=== PATIENT | male | born 1945 | race Caucasian/White ===

== ENCOUNTER 2016-05-13 16:24 | Inpatient (IN) | payer MEDICARE, OTHER ==
[~2016-05-13] VITALS: Ht 180.3 cm; Wt 61.1 kg
[~2016-05-13 16:24] MED LIST: CHLO25CA2 PO; CITA20TA4 PO; DIGO0.12 PO; FOLI1TAB4 PO; HYDR-3516 PO; OMEP40CA2 PO; SUCR1TAB PO; TRAZ50TA12 PO; ULTR50TA5 PO; VITA100T2 PO
[2016-05-13 16:26] VITALS: BP 127/60; PULSE 66; RESP 16; TEMP 98.4; O2SAT 100
[2016-05-13] MEDS ORDERED: SODIUM CHLOR 0.9% 1000 ML INJ 1,000 ML IV SCH ×2 (16:29→19:08)
[2016-05-13] MEDS ORDERED: THIAMINE INJ 100 MG in SODIUM CHLORIDE 0.9% INJ 100 ML IV ONE (16:30)
--- NOTE | 2016-05-13 17:25 | PD ---
HPI Chief Complaint: Alcohol/Drug Intoxication Time Seen by Provider: 17:17 Travel History International Travel<30 days: No Contact w/Intl Traveler<30days: No Traveled to known affect area: No History of Present Illness HPI 71-year-old male that presents to the ED for evaluation of alcohol abuse and generalized pain as well as having thoughts of hurting himself. Patient comes here by him once for evaluation of this. Patient apparently was at his house complaining of some discomfort upon intoxicated and was sent here for evaluation. Per ambulance report patient was recently diagnosed with C. difficile and has been compliant with medications. Do not see any records of this in this facility. 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 Patient states that his pain is from the neck down. Per patient he has been drinking a lot. Per patient he drinks a lot every day. Patient has been here multiple times for alcohol-related complaints. He states that he doesn't use any drugs. He denies any fevers chills or sweats. He states compliant with medications. Denies taking any blood thinners. Denies any recent falls or injuries. Patient was seen here in April and was found to have a rib fracture. He does have an allergy to tetanus, sulfa, vancomycin and has a history of MRSA. History is a little limited secondary to his intoxication. Per patient he feels suicidal. When asked if he has a plan he tells me no, but per ambulance he told them that he had a plan to hurt himself. He does have a history of bipolar disorder, depression and anxiety. PFSH Past Medical History Asthma: Yes Autoimmune Disease: No Blood Disorders: No Bipolar Disorder: Yes Anxiety: Yes Depression: Yes Heart Rhythm Problems: No Cancer: No Cardiovascular Problems: No High Cholesterol: No Chemotherapy: No Chest Pain: No Congestive Heart Failure: No COPD: Yes Cerebrovascular Accident: Yes Diabetes: No Diminished Hearing: No Endocrine: No Gastrointestinal Disorders: Yes GERD: Yes Genitourinary: No Hepatitis: No Hiatal Hernia: No Hypertension: Yes Immune Disorder: No Implanted Vascular Access Dvce: Yes Medical other: Yes (GERD) Musculoskeletal: Yes (RHABDO) Neurologic: Yes (WEAKNESS LEFT SIDE) Psychiatric: Yes Reproductive: No Respiratory: Yes (COPD) Integumentary: No Immunizations Current: Yes Pancreatitis: No Radiation Therapy: No Seizures: No Sleep Apnea: No Thyroid Disease: No Past Surgical History Abdominal Surgery: No Appendectomy: No Body Medical Devices: ivc filter inplace, STENT IN LEG Genitourinary Surgery: No Gynecologic Surgery: No Oral Surgery: Yes Pacemaker: No Thoracic Surgery: Yes (2010 LEFT LOBE THORACOTOMY) Tonsillectomy: Yes Other Surgery: Yes Social History Alcohol Use: Yes (DAILY 1 BOTTLE WINE) Tobacco Use: Yes (1/2 PPD) Substance Use: No Allergies-Medications (Allergen,Severity, Reaction): Coded Allergies: Tetanus Immune Globulin (Verified Allergy, Severe, SWELLING IN ARM, ) Vancomycin (Verified Allergy, Severe, Rash, 05/13/16) Sulfa (Verified Allergy, Intermediate, Rash, 05/13/16) *MDRO Multi-Drug Resistant Organism (Verified Allergy, Unknown, 05/13/16) MRSA Reported Meds & Prescriptions Reported Meds & Active Scripts Active Chlordiazepoxide (Chlordiazepoxide HCl) 25 Mg Cap 25 Mg PO TID PRN Ultram (Tramadol HCl) 50 Mg Tab 50 Mg PO Q6H PRN Hydrocodone-Acetaminophen 5-325 mg Tab 1 Tab PO Q6H PRN Trazodone (Trazodone HCl) 50 Mg Tab 100 Mg PO HS PRN Vitamin B-1 (Thiamine HCl) 100 Mg Tab 100 Mg PO DAILY Folate (Folic Acid) 1 Mg Tab 1 Mg PO DAILY Reported Citalopram (Citalopram Hydrobromide) 20 Mg Tab 20 Mg PO DAILY Omeprazole 40 Mg Cap 40 Mg PO DAILY Sucralfate 1 Gm Tab 1 Gm PO QID on empty stomach Digoxin 0.125 Mg Tab 0.125 Mg PO DAILY Review of Systems ROS Limitations: Intoxication Except as stated in HPI: all other systems reviewed are Neg Physical Exam Exam Limitations: Intoxication Narrative GENERAL: SKIN: Warm and dry. Also note patient has pain whenever put my stethoscope on his chest, abdomen, even with light touch. HEAD: Atraumatic. Normocephalic. EYES: Pupils equal and round. No scleral icterus. No injection or drainage. ENT: No nasal bleeding or discharge. Mucous membranes pink and moist. NECK: Trachea midline. No JVD. CARDIOVASCULAR: Regular rate and rhythm. No obvious murmurs, S3, S4. RESPIRATORY: No accessory muscle use. Clear to auscultation. Breath sounds equal bilaterally. GASTROINTESTINAL: Abdomen soft, non-tender, nondistended. Hepatic and splenic margins not palpable. MUSCULOSKELETAL: Extremities without clubbing, cyanosis, or edema. No obvious deformities. Below the knee amputation on the left leg. Patient has 2+ pulses in the upper extremities and the right lower extremity. NEUROLOGICAL: Awake and alert. No obvious cranial nerve deficits. Motor grossly within normal limits. Five out of 5 muscle strength in the arms and legs. Normal speech. PSYCHIATRIC: Intoxicated mood and affect; insight and judgment questionable. Data Data Last Documented VS Vital Signs Date Time Temp Pulse Resp B/P Pulse Ox O2 Delivery O2 Flow Rate FiO2 05/13/16 19:03 66 18 148/66 97 05/13/16 16:34 Room Air 05/13/16 16:26 98.4 Orders Complete Blood Count With Diff (05/13/16 16:29) Comprehensive Metabolic Panel (05/13/16 16:29) Lipase (05/13/16 16:29) Lactic Acid (05/13/16 16:29) Prothrombin Time / Inr (Pt) (05/13/16 16:29) Act Partial Throm Time (Ptt) (05/13/16 16:29) Urinalysis - C+S If Indicated (05/13/16 16:29) Iv Access Insert/Monitor (05/13/16 16:29) Sodium Chlor 0.9% 1000 Ml Inj (Ns 1000 M (05/13/16 16:29) Electrocardiogram (05/13/16 16:29) Thiamine Inj (Thiamine Inj) (05/13/16 16:30) Alcohol (Ethanol) (05/13/16 16:29) Drug Screen, Random Urine (05/13/16 16:29) Psych Screen (05/13/16 16:31) Chest, Single Ap (05/13/16 ) Sodium Chlor 0.9% 1000 Ml Inj (Ns 1000 M (05/13/16 19:08) Diet Regular Basic (05/14/16 Breakfast) Alcohol Withdrawal Asmt-Ciwa ONCE (05/13/16 19:30) Flumazenil Inj (Romazicon Inj) (05/13/16 19:30) Lorazepam (Ativan) (05/13/16 19:30) Lorazepam Inj (Ativan Inj) (05/13/16 19:30) Lorazepam (Ativan) (05/13/16 19:30) Lorazepam Inj (Ativan Inj) (05/13/16 19:30) Lorazepam Inj (Ativan Inj) (05/13/16 19:30) Lorazepam Inj (Ativan Inj) (05/13/16 19:30) Urine Culture (05/13/16 14:10) Ciprofloxacin (Cipro) (05/13/16 19:45) Labs Laboratory Tests Test 05/13/16 05/13/16 14:10 17:30 Urine Color LIGHT-YELLOW Urine Turbidity CLEAR Urine pH 6.0 Urine Specific Daniels 1.003 Urine Protein NEG mg/dL Urine Glucose (UA) NEG mg/dL Urine Ketones NEG mg/dL Urine Occult Blood NEG Urine Nitrite NEG Urine Bilirubin NEG Urine Urobilinogen LESS THAN 2.0 MG/DL Urine Leukocyte Esterase LARGE Urine RBC 2 /hpf Urine WBC 37 /hpf Urine WBC Clumps RARE Urine Squamous Epithelial <1 /hpf Cells Urine Bacteria RARE /hpf Urine Hyaline Casts 1 /lpf Microscopic Urinalysis Comment CULTURE INDICATED White Blood Count 8.2 TH/MM3 Red Blood Count 4.18 MIL/MM3 Hemoglobin 14.8 GM/DL Hematocrit 42.2 % Mean Corpuscular Volume 100.9 FL Mean Corpuscular Hemoglobin 35.4 PG Mean Corpuscular Hemoglobin 35.1 % Concent Red Cell Distribution Width 14.9 % Platelet Count 215 TH/MM3 Mean Platelet Volume 8.4 FL Neutrophils (%) (Auto) 48.5 % Lymphocytes (%) (Auto) 38.3 % Monocytes (%) (Auto) 10.1 % Eosinophils (%) (Auto) 2.1 % Basophils (%) (Auto) 1.0 % Neutrophils # (Auto) 4.0 TH/MM3 Lymphocytes # (Auto) 3.1 TH/MM3 Monocytes # (Auto) 0.8 TH/MM3 Eosinophils # (Auto) 0.2 TH/MM3 Basophils # (Auto) 0.1 TH/MM3 CBC Comment DIFF FINAL Differential Comment Prothrombin Time 10.3 SEC Prothromb Time International 0.9 RATIO Ratio Activated Partial 29.4 SEC Thromboplast Time Sodium Level 137 MEQ/L Potassium Level 3.8 MEQ/L Chloride Level 103 MEQ/L Carbon Dioxide Level 25.7 MEQ/L Anion Gap 8 MEQ/L Blood Urea Nitrogen 6 MG/DL Creatinine 1.14 MG/DL Estimat Glomerular Filtration 64 ML/MIN Rate Random Glucose 86 MG/DL Lactic Acid Level 3.5 mmol/L Calcium Level 8.3 MG/DL Total Bilirubin 0.4 MG/DL Aspartate Amino Transf 17 U/L (AST/SGOT) Alanine Aminotransferase 15 U/L (ALT/SGPT) Alkaline Phosphatase 125 U/L Total Protein 6.3 GM/DL Albumin 3.0 GM/DL Lipase 239 U/L Ethyl Alcohol Level 284 MG/DL MDM Medical Decision Making Medical Screen Exam Complete: Yes Emergency Medical Condition: Yes Medical Record Reviewed: Yes Interpretation(s) EKG shows sinus rhythm with no sign of acute ischemia or arrhythmia. CBC & BMP Diagram 05/13/16 17:30 Lactic acid of 3.5 LFTs within normal limits. Lipase within normal limits. Urine shows signs of UTI including leukocytes esterase, bacteria, WBCs Last Impressions Chest X-Ray 05/13/16 0000 Signed Impressions: Service Date/Time: Friday, May 13, 2016 18:39 - CONCLUSION: No acute cardiopulmonary disease and a probable skinfold overlapping the left upper chest could be further characterized with right-sided decubitus examination. Charis Hernandez MD Differential Diagnosis Alcohol intoxication versus alcohol abuse versus chronic pain versus C. difficile versus normal exam versus dehydration Narrative Course 71-year-old male that presents to the ED for evaluation of alcohol abuse and chronic pain as well as possible psych evaluation. Patient was properly examined and was found to have signs and symptoms of unclear etiology. Patient is intoxicated. Per ambulance report patient has C. difficile and apparently takes medications for this. Again I do not have any medical records of this in our facility. At this time I will do labs. Patient states that he does feel suicidal but has no plan. Patient came here voluntarily. At this time will do a psych screening with no [place] acted him. Patient was started on IV fluids and timing secondary to his alcohol intoxication. Labs and EKG showed slightly elevated lactic acid with possible UTI. Patient will be treated with Cipro for this. Patient does not appear to be septic on exam. Patient is not tachycardic. Patient has no fever. I believe that the lactic acid is likely secondary to his alcohol abuse. Patient does have an alcohol of almost 250. Patient was put on Cipro prescription. Patient will be medically clear for psych evaluation as he states that he is suicidal. Patient was given prescription for Cipro. Case discussed with my attending Dr Alaniz who agrees with plan who was made aware of all findings. Diagnosis Primary Impression: Alcohol intoxication Qualified Code: F10.129 - Alcohol intoxication, with unspecified complication Additional Impressions: UTI (urinary tract infection) Qualified Code: N30.00 - Acute cystitis without hematuria Dehydration Suicidal ideation Scripts Ciprofloxacin (Cipro)500 Mg [id number] Mg PO BID 7 Days Prov:Marguerite Alaniz MD 05/13/16 Joel Gomez May 13, 2016 17:25
[2016-05-13 17:38] LABS: BASOPHIL # 0.1 TH/MM3 (0-0.2); EOSINOPHIL # 0.2 TH/MM3 (0-0.4); EOSINOPHIL % 2.1 % (0.0-4.0); HEMATOCRIT 42.2 % (39.0-51.0); HEMO FLAGS DIFF FINAL; LYMPH % 38.3 % (9.0-44.0); LYMPHOCYTE # 3.1 TH/MM3 (1.0-4.8); MEAN CELL VOLUME 100.9 FL (80.0-100.0); MEAN CORPUSCULAR HEMOGLOBIN 35.4 PG (27.0-34.0); MEAN CORPUSCULAR HGB CONC 35.1 % (32.0-36.0); MONO % 10.1 % (0.0-8.0); NEUT % 48.5 % (16.0-70.0); PLATELET COUNT 215 TH/MM3 (150-450); RED BLOOD COUNT 4.18 MIL/MM3 (4.50-5.90); RED CELL DISTRIBUTION WIDTH 14.9 % (11.6-17.2); WHITE BLOOD COUNT 8.2 TH/MM3 (4.0-11.0)
[2016-05-13 17:47] LABS: APTT (PATIENT) 29.4 SEC (24.3-30.1); INTERNATIONAL NORMALIZED RATIO 0.9 RATIO; PROTHROMBIN TIME - PATIENT 10.3 SEC (9.8-11.6)
[2016-05-13 17:59] LABS: ALT (GPT) 15 U/L (12-78); ANION GAP 8 MEQ/L (5-15); AST (GOT) 17 U/L (15-37); BICARBONATE 25.7 MEQ/L (21.0-32.0); BLOOD UREA NITROGEN 6 MG/DL (7-18); CHLORIDE 103 MEQ/L (98-107); GLOMERULAR FILTRATION RATE 64 ML/MIN (>89); POTASSIUM 3.8 MEQ/L (3.5-5.1); SODIUM (NA) 137 MEQ/L (136-145)
[2016-05-13 18:02] LABS: ALKALINE PHOSPHATASE 125 U/L (45-117); TOTAL BILIRUBIN ADULT 0.4 MG/DL (0.2-1.0)
[2016-05-13 19:03] VITALS: BP 148/66; PULSE 66; RESP 18; O2SAT 97
--- NOTE | 2016-05-13 19:03 | RADRPT ---
EXAM DATE/TIME: 05/13/2016 18:39 [facility] COMPARISON: CHEST SINGLE AP, April 06, 2016, 17:01. CHEST SINGLE AP, April 10, 2016, 16:26. INDICATIONS : Chest pain for 3 days MEDICAL HISTORY : Hypertension. Chronic obstructive pulmonary disease. Asthma SURGICAL HISTORY : Tonsillectomy. Lobectomy. stent in leg. ENCOUNTER: Initial ACUITY: 3 days PAIN SCORE: 5/10 LOCATION: Left chest FINDINGS: There are old healed rib fractures in the left chest. There is also old right clavicular fracture. Pr obable skinfold is present overlapping the left upper chest. The lungs are clear without infiltrate, nodule, or mass. There is no appreciable pleural effusion for technique. Heart and mediastinum are unremarkable. CONCLUSION: No acute cardiopulmonary disease and a probable skinfold overlapping the left upper chest could be fu rther characterized with right-sided decubitus examination. Charis Hernandez MD on May 13, 2016 at 19:00 Board Certified Radiologist. This report was verified electronically.
[2016-05-13 19:24] LABS: BACTERIA, URINE RARE /hpf; BLOOD, URINE NEG (NEG); GLUCOSE,URINE NEG (NEG); HYALINE CAST, URINE 1 /lpf (RARE); KETONE, URINE NEG (NEG); NITRITE,URINE NEG (NEG); SQUAMOUS EPITHELIAL CELL URINE <1 /hpf (0-5); URINE COLOR LIGHT-YELLOW (YELLW/STRAW)
[2016-05-13 19:30] LABS: COMMENT (UR) CULTURE INDICATED; CULTURE IF INDICATED CULTURE INDICATED
[2016-05-13] MEDS ORDERED: FLUMAZENIL 1 MG/10 ML VIAL IV PUSH PRN (19:30)
[2016-05-13] MEDS ORDERED: LORazepam 2 MG/ML VIAL IV PUSH PRN ×4 (19:30)
[2016-05-13] MEDS ORDERED: CIPR-9 PO ×2 (19:34→19:38)
[2016-05-13 19:43] LABS: AMPHETAMINE, URINE NEG (NEG); BARBITURATES, URINE NEG (NEG); COCAINE, URINE NEG (NEG)
[2016-05-13] MEDS ORDERED: CIPROFLOXACIN 500 MG TAB PO ONE (19:45)
[2016-05-13 23:15] VITALS: BP 130/58; PULSE 70; RESP 18; O2SAT 98
[2016-05-14 03:54] VITALS: BP 136/30; PULSE 72; RESP 18; O2SAT 99
[2016-05-14 07:27] VITALS: BP 134/67; PULSE 82; RESP 14; O2SAT 97
--- NOTE | 2016-05-14 07:58 | EKG ---
Date Performed: 05/13/2016 Time Performed: 16:52:45 PTAGE: 71 years EKG: Sinus rhythm BORDERLINE LEFT AXIS DEVIATION LOW QRS VOLTAGE IN EXTREMITY LEADS BORDERLINE ECG PREVIOUS TRACING : 04/26/2016 12.37 No significant change from previous tracing noted. DOCTOR: Edmond Pantoja Interpretating Date/Time 05/14/2016 07:57:16
[2016-05-14 12:00] VITALS: BP 130/70; PULSE 60; RESP 15; O2SAT 100
[2016-05-14] MEDS: CIPROFLOXACIN 500 MG TAB PO SCH (17:00)
[2016-05-14 17:29] VITALS: BP 154/75; PULSE 76; RESP 16; TEMP 98.2; O2SAT 100
[2016-05-14 17:53] VITALS: BP 118/65; TEMP 98.6
[2016-05-15] VITALS: BP 162/70; PULSE 78; RESP 18; O2SAT 98
[2016-05-15] MEDS ORDERED: ACETAMINOPHEN 325 MG TAB PO ONE
[2016-05-15] MEDS: LORazepam 1 MG TAB PO PRN (00:07)
[2016-05-15 06:19] VITALS: BP 137/67; PULSE 78; RESP 18; O2SAT 98
[2016-05-15 09:00] VITALS: BP 160/77; PULSE 70; RESP 20; TEMP 98.3; O2SAT 100
--- NOTE | 2016-05-15 09:21 | PD ---
History of Present Illness Chief Complaint: Alcohol/Drug Intoxication Time Seen by Provider: 09:15 Travel History International Travel<30 Days: No Contact w/Intl Traveler<30days: No Known affected area: No Legal Status Legal Status: Voluntary History of Present Illness: History of Present Illness 71-year-old male with hx of alcohol abuse as well as bipolar disorder, depression that presents to the ED on a voluntary basis for evaluation of alcohol abuse as well as having thoughts of hurting himself. Patient has had 6 ED visits since March for ETOH related complaints as well as inability to care for himself. he was hospitalized from Apr 11 - for unsafe discharge. As per records the patient comes in saying he cannot take care of himself and requesting group home placement but when he is placed in SNF he signs himself out. He has multiple health issues including COPD, limited mobility due to amputation of left leg , patient reports he was recently diagnosed with C. difficile and has been compliant with medications. Do not see any records of this in this facility. Per patient he has been drinking a lot. Per patient he drinks a lot every day most days. He states compliant with medications.As per Ed documentation " he feels suicidal. When asked if he has a plan he tells me no, but per ambulance he told them that he had a plan to hurt himself" . He does have a history of bipolar disorder, depression and anxiety. Patient seen in main Ed. Awake, alert appears depressed. Disheveled appearance. Speech is clear but slowed responses. No hallucinations, no delusions , no paranoia. States " I don't feel well physically and mentally. I am lonely and I want another life". If I had a gun I wouldn't feel here". I feel like crap". Reports impaired sleep, no appetite, low level of energy, depressed mood. His BAL on admission was 284. He reports that he drinks most days. He continues to endorse suicidal thoughts although he does not own a gun and this is his plan. In terms of psychiatric history reported history of depression and bipolar disorder. As per EMR this patietn has not had previous contact with [facility] [place]. Telephone call to Dr. Parnell . As per [facility] this patient has not been to this office since February and they have no documentation that he was dx w C diff. She reports that he is non compliant with medications. PFSH Past Medical History Asthma: Yes Autoimmune Disease: No Blood Disorders: No Bipolar Disorder: Yes Anxiety: Yes Depression: Yes Heart Rhythm Problems: No Cancer: No Cardiovascular Problems: No High Cholesterol: No Chemotherapy: No Chest Pain: No Congestive Heart Failure: No COPD: Yes Cerebrovascular Accident: Yes Diabetes: No Diminished Hearing: No Endocrine: No Gastrointestinal Disorders: Yes GERD: Yes Genitourinary: No Hepatitis: No Hiatal Hernia: No Hypertension: Yes Immune Disorder: No Implanted Vascular Access Dvce: Yes Medical other: Yes (GERD) Musculoskeletal: Yes (RHABDO) Neurologic: Yes (WEAKNESS LEFT SIDE) Psychiatric: Yes Reproductive: No Respiratory: Yes (COPD) Integumentary: No Immunizations Current: Yes Pancreatitis: No Radiation Therapy: No Seizures: No Sleep Apnea: No Thyroid Disease: No Past Surgical History Abdominal Surgery: No Appendectomy: No Body Medical Devices: ivc filter inplace, STENT IN LEG Genitourinary Surgery: No Gynecologic Surgery: No Oral Surgery: Yes Pacemaker: No Thoracic Surgery: Yes (2010 LEFT LOBE THORACOTOMY) Tonsillectomy: Yes Other Surgery: Yes Psychiatric History Psychiatric History Hx Psychiatric Treatment: PER HX MULTIPLE DETOX ADMITS AND [facility] [place], [facility] HX OF ANXIETY, DEPRESSION AND BIPOLAR D/O Sees Dr. Avila in [place] who prescribes medicaitons for depression History of Inpatient Treatment: Yes ([place] approx 16 years ago. [place] in the 1989.) Guns or firearms in home: No Social History male " all my life". from his 4 years ago. Has 2 children . Has not had contact with son in more than 30 years. Retired. Worked in [employer]. Hx Alcohol Use: Yes (DAILY 1 BOTTLE WINE) Hx Tobacco Use: Yes (1/2 PPD) Hx Substance Use: No Substance Use Type: Alcohol Hx of Substance Use Treatment: Yes Family Psychiatric History None reported Allergies-Medications (Allergen,Severity, Reaction): Coded Allergies: Tetanus Immune Globulin (Verified Allergy, Severe, SWELLING IN ARM, ) Vancomycin (Verified Allergy, Severe, Rash, 05/13/16) Sulfa (Verified Allergy, Intermediate, Rash, 05/13/16) *MDRO Multi-Drug Resistant Organism (Verified Allergy, Unknown, 05/13/16) MRSA Reported Meds & Prescriptions Reported Meds & Active Scripts Active Cipro (Ciprofloxacin HCl) 500 Mg Tab 500 Mg PO BID 7 Days Chlordiazepoxide (Chlordiazepoxide HCl) 25 Mg Cap 25 Mg PO TID PRN Ultram (Tramadol HCl) 50 Mg Tab 50 Mg PO Q6H PRN Hydrocodone-Acetaminophen 5-325 mg Tab 1 Tab PO Q6H PRN Trazodone (Trazodone HCl) 50 Mg Tab 100 Mg PO HS PRN Vitamin B-1 (Thiamine HCl) 100 Mg Tab 100 Mg PO DAILY Folate (Folic Acid) 1 Mg Tab 1 Mg PO DAILY Reported Citalopram (Citalopram Hydrobromide) 20 Mg Tab 20 Mg PO DAILY Omeprazole 40 Mg Cap 40 Mg PO DAILY Sucralfate 1 Gm Tab 1 Gm PO QID on empty stomach Digoxin 0.125 Mg Tab 0.125 Mg PO DAILY Review of Systems Constitutional: COMPLAINS OF: Weight loss, Change in appetite Endocrine: DENIES: Heat/cold intolerance, Polydipsia, Polyuria, Polyphagia Eyes: DENIES: Blurred vision, Diplopia, Eye inflammation, Eye pain, Vision loss , Photosensitivity, Double Vision Ears, nose, mouth, throat: DENIES: Tinnitus, Hearing loss, Vertigo, Nasal discharge, Oral lesions, Throat pain, Hoarseness, Ear Pain, Running Nose, Epistaxis, Sinus Pain, Toothache, Odynophagia Respiratory: DENIES: Apneas, Cough, Snoring, Wheezing, Hemoptysis, Sputum production, Shortness of breath Cardiovascular: DENIES: Chest pain, Palpitations, Syncope, Dyspnea on Exertion , PND, Lower Extremity Edema, Orthopnea, Claudication Gastrointestinal: COMPLAINS OF: Abdominal pain, Anorexia Genitourinary: DENIES: Sexual dysfunction, Urinary frequency, Urinary incontinence, Urgency, Hematuria, Dysuria, Nocturia, Penile Discharge, Testicular Pain, Testicular Swelling Musculoskeletal: COMPLAINS OF: Back pain Integumentary: COMPLAINS OF: Rash Hematologic/lymphatic: DENIES: Bruising, Lymphadenopathy Immunologic/allergic: DENIES: Eczema, Urticaria Neurologic: COMPLAINS OF: Poor Balance Psychiatric: COMPLAINS OF: Depression, Suicidal Ideation Exam Alert: Yes [place]: Person (ox4) Mood: Depressed Affect: Restricted Speech: Clear, Logical Eye Contact: Indirect Memory Intact: Comment (not formally tetsed) Hallucinations: Other (neghative) Suicidal: Ideation (pasive wishes) Insight/Judgement Poor. Poor MDM Medical Decision Making Medical Record Reviewed: Yes Assessment/Plan 71 year old male with history of depression, bipolar disorder and alcohol abuse who presents as depressed with passive wishes. he had verbalized his intent to use a gun to shoot himself if he had a gun. Currently patient with multiple health issues including UTI, possible C dificile. At this timer this patient requires care in inpatient treatment facility. He cannot be referred to [facility] due to multiple medical conditions. He is not taking care of himself and presents a risk to himself as a result. I have asked STATEMENT DISTRIBUTION CLERK charge to clarify status of C difficile. She reports this patient has not had any bowel movements in more than 24 hours. Orders Diet Regular Basic (05/14/16 Dinner) Ciprofloxacin (Cipro) (05/14/16 17:00) Acetaminophen (Tylenol) (05/15/16 00:00) Results Vital Signs Date Time Temp Pulse Resp B/P Pulse Ox O2 Delivery O2 Flow Rate FiO2 05/15/16 06:19 78 18 137/67 98 Room Air 05/15/16 00:00 78 18 162/70 98 Room Air 05/14/16 17:29 98.2 76 16 154/75 100 Room Air 05/14/16 15:12 65 16 05/14/16 12:00 60 15 130/70 100 Room Air Date/Time Procedure Status Source Growth 05/13/16 14:10 Urine Culture - Preliminary Resulted Urine Clean Catch Gram Negative Simon Diagnosis Primary Impression: Alcohol intoxication Additional Impressions: Suicidal ideation UTI (urinary tract infection) Dehydration Bipolar disorder Admitting Information Admitting Physician Requests: Admit (Dr. Godfrey) Prescriptions Ciprofloxacin (Cipro)500 Mg [id number] Mg PO BID 7 Days Prov:Marguerite Alaniz MD 05/13/16 Problem Qualifiers Primary Impression: Alcohol intoxication Qualified Code: F10.129 - Alcohol intoxication, with unspecified complication Additional Impressions: UTI (urinary tract infection) Qualified Code: N30.00 - Acute cystitis without hematuria Bipolar disorder Qualified Code: F31.4 - Bipolar disorder, current episode depressed, severe, without psychotic features Josselin Arriaga May 15, 2016 09:21
[2016-05-15] MEDS: CIPROFLOXACIN 500 MG TAB PO SCH (09:53)
[2016-05-15 12:01] VITALS: BP 156/72; PULSE 78; RESP 16; O2SAT 97
[2016-05-15] MEDS ORDERED: MAGNESIUM HYDROXIDE SUSP 30 ML CUP PO PRN (12:15)
[2016-05-15] MEDS ORDERED: ALUMINUM/MAGNESIUM/SIMETH 30 ML CUP PO PRN (12:15)
[2016-05-15] MEDS ORDERED: ACETAMINOPHEN 325 MG TAB PO PRN (12:15)
[2016-05-15 13:24] VITALS: BP 161/75; PULSE 81; RESP 18; TEMP 98; O2SAT 99
[2016-05-15] MEDS: LORazepam 2 MG TAB PO PRN (13:34)
[2016-05-15 20:18] VITALS: BP 149/70; PULSE 81; RESP 16; TEMP 99.3; O2SAT 97
[2016-05-16 06:30] VITALS: BP 138/66; PULSE 73; RESP 18; TEMP 98.4; O2SAT 100
[2016-05-16 08:08] LABS: ANION GAP 8 MEQ/L (5-15); BICARBONATE 25.4 MEQ/L (21.0-32.0); BLOOD UREA NITROGEN 12 MG/DL (7-18); CHLORIDE 111 MEQ/L (98-107); GLOMERULAR FILTRATION RATE 77 ML/MIN (>89); POTASSIUM 3.5 MEQ/L (3.5-5.1); SODIUM (NA) 144 MEQ/L (136-145)
[2016-05-16 08:12] LABS: HDL CHOLESTEROL 50.7 MG/DL (40.0-60.0); LDL CHOLESTEROL 34 MG/DL (0-99)
[2016-05-16] MEDS: CIPROFLOXACIN 500 MG TAB PO SCH ×2 (08:44→21:12)
[2016-05-16] MEDS: LORazepam 1 MG TAB PO PRN (08:44)
[2016-05-16] MEDS ORDERED: MAGNESIUM HYDROXIDE SUSP 30 ML CUP PO PRN (10:00)
[2016-05-16] MEDS ORDERED: ALUMINUM/MAGNESIUM/SIMETH 30 ML CUP PO PRN (10:00)
[2016-05-16] MEDS ORDERED: diphenhydrAMINE HCL 50 MG CAP PO PRN (10:00)
--- NOTE | 2016-05-16 10:13 | HHI.HP ---
Provisional Diagnosis Admission Date May 15, 2016 at 12:11 [place] I. Alcohol use of alcohol-induced mood disorder f 10.94 Certification of Person's Competence To Provide Express and Informed Consent I have personally examined Jah Knapp , a person being served at [facility] on, May 16, 2016 10:02. Express and informed consent means consent voluntarily given in writing, by a competent person, after sufficient explanation and disclosure of the subject matter involved to enable the person to make a knowing and willful decision without any element of force, fraud, deceit, duress, or other form of constraint or coercion. This person is 18 years of age or older, is not now known to be incompetent to consent to treatment with a guardian advocate, and does not have a health care surrogate or proxy currently making medical treatment decisions. I have found this person to be one of the following: [x] Competent to provide express and informed consent, as defined above, for voluntary admission to this facility and is competent to provide express and informed consent for treatment. He/she has the consistent capacity to make well reasoned, willful, and knowing decisions concerning his or her medical or mental health treatment. The person fully and consistently understands the purpose of the admission for examination/placement and is fully capable of personally exercising all rights assured [place] Incompetent to provide express and informed consent to voluntary admission, and this is incompetent to provide express and informed consent to treatment. The person must be transferred to involuntary status and a petition for a guardian advocate filed with the Circuit Court. [] Refusing to provide express and informed consent to voluntary admission but is competent to provide express and informed consent for treatment. The person must be discharged or transferred to involuntary status. Form shall be completed within 24 hours of a person's arrival at the receiving facility and filed in the clinical record of each person: 1. Admitted on a voluntary basis 2. Permitted to provide express and informed consent to his/her own treatment 3. Allowed to transfer from involuntary to voluntary status 4. Prior to permitting a person to consent to his or her own treatment after having been previously found incompetent to consent to treatment. History of Present Illness Capacity: Has Capacity HPI Patient is a 8-year-old white male who initially comes the emergency department voluntarily complaining of depression, having thoughts of wanting to kill himself. In the ED patient but alcohol level was 284. Patient is having multiple visits to [facility] ED most of them alcohol related multiple levels well over 2-300. At the present time patient sitting quietly in his bed on 2500 he is alert oriented at this time nurse Debi present throughout session. He states he does have an apartment where he stays acknowledges drinking every day basically wine he shows some memory deficits related to past detox and/or rehabilitation programs or legal issues. Both his family does denies suicidality. Does have urinary tract infection with acinobactor. That needs to be addressed by the hospitalist. 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 Hopeless to be short stay and he can return to his home will continue his schedule medications per the med reconciliation Review of Systems ROS Limitations: Intoxication Constitutional: DENIES: Diaphoretic episodes, Fatigue, Fever, Weight gain, Weight loss, Chills, Dizziness, Change in appetite, Night Sweats Endocrine: DENIES: Heat/cold intolerance, Polydipsia, Polyuria, Polyphagia Eyes: DENIES: Blurred vision, Diplopia, Eye inflammation, Eye pain, Vision loss , Photosensitivity, Double Vision Ears, nose, mouth, throat: DENIES: Tinnitus, Hearing loss, Vertigo, Nasal discharge, Oral lesions, Throat pain, Hoarseness, Ear Pain, Running Nose, Epistaxis, Sinus Pain, Toothache, Odynophagia Respiratory: DENIES: Apneas, Cough, Snoring, Wheezing, Hemoptysis, Sputum production, Shortness of breath Cardiovascular: DENIES: Chest pain, Palpitations, Syncope, Dyspnea on Exertion , PND, Lower Extremity Edema, Orthopnea, Claudication Gastrointestinal: DENIES: Abdominal pain, Black stools, Bloody stools, Constipation, Diarrhea, Nausea, Vomiting, Difficulty Swallowing, Anorexia Musculoskeletal: DENIES: Joint pain, Muscle aches, Stiffness, Joint Swelling, Back pain, Neck pain Integumentary: DENIES: Abnormal pigmentation, Nail changes, Pruritus, Rash Hematologic/lymphatic: DENIES: Bruising, Lymphadenopathy Immunologic/allergic: DENIES: Eczema, Urticaria Neurologic: DENIES: Abnormal gait, Headache, Localized weakness, Paresthesias, Seizures, Speech Problems, Tremor, Poor Balance Psychiatric: DENIES: Anxiety, Confusion, Mood changes, Depression, Hallucinations, Agitation, Suicidal Ideation, Homicidal Ideation, Delusions Past Psych History Psychological trauma history Patient denies physical or sexual abuse Violence risk - others (6 mos) Low Violence risk - self (6 mos) Made suicidal statements to police and staff in ED Substance Abuse History Drugs/Alcohol past 12 months Patient active alcoholic Past Family Social History Coded Allergies: Tetanus Immune Globulin (Verified Allergy, Severe, SWELLING IN ARM, ) Vancomycin (Verified Allergy, Severe, Rash, 05/13/16) Sulfa (Verified Allergy, Intermediate, Rash, 05/13/16) *MDRO Multi-Drug Resistant Organism (Verified Adverse Reaction, Unknown, MRSA, 05/16/16) 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 Past Medical History Patient has left BKA from gangrene Active Scripts Ciprofloxacin (Cipro)500 Mg [id number] Mg PO BID 7 Days Prov:Marguerite Alaniz MD 05/13/16 Chlordiazepoxide 25 Mg Cap25 Mg PO TID PRN (Anxiety) #21 CAP Ref 0 Prov:Ector Broderick MD 04/26/16 Tramadol (Ultram)50 Mg Tab50 Mg PO Q6H PRN (PAIN) #30 TAB Ref 0 Prov:Ector Broderick MD 04/26/16 Hydrocodone-Acetaminophen 5-325 mg Tab1 Tab PO Q6H PRN (PAIN SCALE 1 TO 10) #21 TAB Prov:Pérez Nogueira MD 04/14/16 Trazodone 50 Mg [id number] Mg PO HS PRN (INSOMNIA) #30 TAB Prov:June Allison 04/13/16 Thiamine (Vitamin B-1)100 Mg [id number] Mg PO DAILY #30 TAB Prov:June Allison 04/13/16 Folic Acid (Folate)1 Mg Tab1 Mg PO DAILY #30 TAB Prov:June Allison 04/13/16 Reported Medications Citalopram 20 Mg Tab20 Mg PO DAILY #30 TAB Ref 0 04/11/16 Omeprazole 40 Mg Cap40 Mg PO DAILY #30 CAP Ref 0 04/11/16 Sucralfate 1 Gm Tab1 Gm PO QID #120 TAB Ref 0 on empty stomach 04/11/16 Digoxin 0.125 Mg Tab0.125 Mg PO DAILY #30 TAB Ref 0 04/11/16 Discontinued Scripts Ciprofloxacin (Cipro)500 Mg [id number] Mg PO BID 7 Days Prov:Marguerite Alaniz MD 05/13/16 Current Medications Medications (Trade) Dose Ordered Sig/Rebekah Route Start Time Stop Time Status Last Admin (Ativan) 1 mg Q4H PRN PO 05/13/16 19:30 05/16/16 08:44 (Ativan Inj) 1 mg Q4H PRN IV PUSH 05/13/16 19:30 05/14/16 03:54 (Ativan) 2 mg Q2H PRN PO 05/13/16 19:30 05/15/16 13:34 (Ativan Inj) 2 mg Q2H PRN IV PUSH 05/13/16 19:30 (Ativan Inj) 2 mg Q1H PRN IV PUSH 05/13/16 19:30 (Ativan Inj) 2 mg Q15M PRN IV PUSH 05/13/16 19:30 (Cipro) 500 mg DAILY PO 05/14/16 17:00 05/16/16 08:44 (Tylenol) 650 mg Q4H PRN PO 05/15/16 12:15 05/15/16 13:34 (Milk Of Magnesia Liq) 30 ml DAILY PRN PO 05/15/16 12:15 (Mag-Al Plus Susp Liq) 30 ml Q6H PRN PO 05/15/16 12:15 (Benadryl) 50 mg HS PRN PO 05/16/16 10:00 UNV (Tylenol) 650 mg Q4H PRN PO 05/16/16 10:00 UNV (Milk Of Magnesia Liq) 30 ml DAILY PRN PO 05/16/16 10:00 UNV (Mag-Al Plus Susp Liq) 30 ml Q6H PRN PO 05/16/16 10:00 UNV (Habitrol 21 Mg Patch.24 Hr) 1 patch DAILY T-DERMAL 05/17/16 09:00 UNV Family History Patient denies mental health history in his family Social History Patient states is been 6 times and his 4 children he is estranged from all of them Patient's Strengths (min. 2) Patient verbally waxes health care Physical Exam Patient seen screened in ED exam reviewed and agreed with vital signs blood pressure 130/66 pulse 73 respirations 16 Vital Signs Vital Signs Date Time Temp Pulse Resp B/P Pulse Ox O2 Delivery O2 Flow Rate FiO2 05/16/16 06:30 98.4 73 18 138/66 100 05/15/16 12:01 Room Air I/O 05/15/16 05/15/16 05/16/16 08:00 16:00 00:00 Intake Total 600 ml Output Total 300 ml Balance -300 ml 600 ml Mental Status Examination Alert oriented white male thin slender long brown leach somewhat disheveled cooperative with good eye contact Appearance Somewhat disheveled Speech: Unremarkable Orientation: x3 Memory: Impaired (describe) (600 alcohol abuse) Thought Process: Logical, Linear Thought Content: Unremarkable Language [place] [employer] Poor Hallucination Type: None Attention and Concentration: Other (fair) Suicidal Ideation: Yes (voices suicidal ideation to police and hospital staff) Previous Suicide Attempts: No Homicidal Ideation: No Previous Homicide Attempts: No Insight: Poor Judgement: Poor Affect: Other (decreased range intensity) Mood: Euthymic (to mildly dysphoric) Motor Activity: Abnormal gait-specify (patient has left BKA ) Assessment & Plan Problem List: (1) Alcohol use with alcohol-induced mood disorder ICD Code: F10.94 Assessment & Plan Estimated LOS: 3-5 days patient meets criteria for involuntary inpatient psychiatric consultation to address his mood issues also to address the withdrawal potential of his alcoholism. Discharge Planning To be determined Request HC Surrog/Guard Advoc?: Nate Skinner MD May 16, 2016 10:13
[2016-05-16] MEDS: THIAMINE HCL 100 MG TAB PO SCH (11:03)
[2016-05-16] MEDS: PANTOPRAZOLE SOD 40 MG DELAYED RELEASE TAB PO SCH (11:03)
[2016-05-16] MEDS: DIGOXIN 0.125 MG TAB PO SCH (11:03)
[2016-05-16] MEDS: FOLIC ACID 1 MG TAB PO SCH (11:04)
[2016-05-16] MEDS: CITALOPRAM HYDROBROMIDE 20 MG TAB PO SCH (11:04)
[2016-05-16] MEDS: SUCRALFATE 1 GM TAB PO SCH ×3 (13:00→21:12)
[2016-05-16 13:55] LABS: HEMOGLOBIN A1a 1.4 %; HEMOGLOBIN A1b 0.8 %; HEMOGLOBIN Ao 86.6 %; HEMOGLOBIN F 0.7 %; HEMOGLOBIN LA1C 2.1 %; HEMOGLOBIN P3 3.3 %
[2016-05-16 19:53] VITALS: BP 142/70; PULSE 76; RESP 17; TEMP 98.9; O2SAT 98
[2016-05-16] MEDS: traZODone HCL 50 MG TAB PO PRN (21:28)
[2016-05-17 06:00] VITALS: BP 131/60; PULSE 82; RESP 16; TEMP 97.5; O2SAT 96
[2016-05-17] MEDS: CIPROFLOXACIN 500 MG TAB PO SCH ×2 (08:59→20:32)
[2016-05-17] MEDS: NICOTINE 21 MG/24 HR PATCH T-DERMAL SCH (08:59)
[2016-05-17] MEDS: SUCRALFATE 1 GM TAB PO SCH ×4 (08:59→20:32)
[2016-05-17] MEDS: FOLIC ACID 1 MG TAB PO SCH (09:00)
[2016-05-17] MEDS: CITALOPRAM HYDROBROMIDE 20 MG TAB PO SCH (09:00)
[2016-05-17] MEDS: THIAMINE HCL 100 MG TAB PO SCH (09:00)
[2016-05-17] MEDS: REMOVE OLD NICODERM (NICOTINE) PATCH TD SCH (09:00)
[2016-05-17] MEDS: PANTOPRAZOLE SOD 40 MG DELAYED RELEASE TAB PO SCH (09:00)
[2016-05-17] MEDS: DIGOXIN 0.125 MG TAB PO SCH (09:00)
--- NOTE | 2016-05-17 12:57 | HHI.PYPN ---
Subjective Remarks He should seen in his room, nurse Kenneth, chart reviewed. Patient tolerated the isolation at this time due to his urinary tract infection. Compliant medications. He denies suicidality homicidality voices or visions. He continues to vacillate between wine to return to his apartment going into a more restrictive setting such as a detention. We'll continue to work with him with this Review of Systems Other No somatic complaints today Objective Alert: Yes [place]: Person (ox4) Mood: Depressed Affect: Restricted Memory Intact: Comment (not formally tetsed) Hallucinations: Other (neghative) Delusions: No Delusion Type: Other (none noted) Suicidal: Ideation (pasive wishes) Homicidal: Ideation (denies) Insight/Judgement Poor Labs Date/Time Procedure Status Source Growth 05/13/16 14:10 Urine Culture - Final Complete Urine Clean Catch Acinetobacter Baumannii/Haemol Vitals/IOs Vital Signs Date Time Temp Pulse Resp B/P Pulse Ox O2 Delivery O2 Flow Rate FiO2 05/17/16 06:00 97.5 82 16 131/60 96 05/15/16 12:01 Room Air Intake and Output 05/16/16 05/16/16 05/17/16 08:00 16:00 00:00 Intake Total 0 ml 600 ml Balance 0 ml 600 ml Assessment & Plan Problem List: (1) Alcohol use with alcohol-induced mood disorder ICD Code: F10.94 Assessment & Plan Estimated LOS: days patient calmer today more focused today. Compliant with treatment. Continues to consider varus placement options Justification for Cont. Inpt. At this time patient would decompensated placed on the lower level of care Discharge Planning To be determined Request HC Surrog/Guard Advoc?: Nate Skinner MD May 17, 2016 12:57
[2016-05-17] MEDS: traZODone HCL 50 MG TAB PO PRN (20:32)
[2016-05-17 20:53] VITALS: BP 133/63; PULSE 82; RESP 18; TEMP 98.3; O2SAT 98
[2016-05-18 05:57] VITALS: BP 154/70; PULSE 91; RESP 16; TEMP 97.6; O2SAT 97
[2016-05-18 07:31] LABS: HEMATOCRIT 38.4 % (39.0-51.0); MEAN CELL VOLUME 103.1 FL (80.0-100.0); MEAN CORPUSCULAR HEMOGLOBIN 34.9 PG (27.0-34.0); MEAN CORPUSCULAR HGB CONC 33.9 % (32.0-36.0); PLATELET COUNT 164 TH/MM3 (150-450); RED BLOOD COUNT 3.73 MIL/MM3 (4.50-5.90); RED CELL DISTRIBUTION WIDTH 14.9 % (11.6-17.2); REVIEW FLAG FINAL; WHITE BLOOD COUNT 6.7 TH/MM3 (4.0-11.0)
[2016-05-18 07:56] LABS: BICARBONATE 23.8 MEQ/L (21.0-32.0); POTASSIUM 3.7 MEQ/L (3.5-5.1)
[2016-05-18] MEDS: THIAMINE HCL 100 MG TAB PO SCH (09:00)
[2016-05-18] MEDS: PANTOPRAZOLE SOD 40 MG DELAYED RELEASE TAB PO SCH (09:00)
[2016-05-18] MEDS: SUCRALFATE 1 GM TAB PO SCH ×4 (09:00→21:00)
[2016-05-18] MEDS: CITALOPRAM HYDROBROMIDE 20 MG TAB PO SCH (09:00)
[2016-05-18] MEDS: FOLIC ACID 1 MG TAB PO SCH (09:00)
[2016-05-18] MEDS: NICOTINE 21 MG/24 HR PATCH T-DERMAL SCH (09:00)
[2016-05-18] MEDS: DIGOXIN 0.125 MG TAB PO SCH (09:00)
[2016-05-18] MEDS: CIPROFLOXACIN 500 MG TAB PO SCH ×2 (09:00→21:00)
[2016-05-18] MEDS: REMOVE OLD NICODERM (NICOTINE) PATCH TD SCH (09:00)
--- NOTE | 2016-05-18 09:34 | MB ---
cc: KENDRICK TEJEDA MD DATE OF CONSULTATION 05/17/16 REASON FOR CONSULTATION Assistance in medical management. HISTORY OF PRESENT ILLNESS This is an unfortunate 71-year-old male with extensive past medical history includes hypertension, COPD, peripheral arterial disease with history of chronic smoking and chronic alcohol use. He has multiple recent ER visits due to alcohol intoxication and weakness. He came to the ER on May 13, 2016 and was diagnosed with a urinary tract infection. He was given ciprofloxacin. He came back on the . He was noted to be intoxicated. He was depressed. He has suicidal ideations. He was [place] Acted and was admitted to psych facility for depression, alcohol, intoxication/withdrawal. Currently he lying in bed, appears comfortable. He just feels lonely. He claims his three years ago and, since then, he does not have much to do, He has chronic cough which is not significantly changed. He has scanty white sputum production. He denies chest pain, shortness of breath, nausea or vomiting. He is bored. He wants to have TV in his room or have some music. He has chronic urinary continence which is not significantly changed. He denies abdominal pain. Denies diarrhea. PAST MEDICAL HISTORY 1. Hypertension. 2. Hyperlipidemia. 3. Peripheral arterial disease. 4. COPD 5. History of lung cancer 6. History of left foot osteomyelitis/gangrene. 7. Peripheral neuropathy 8. Prior history of C diff. 9. Chronic urinary incontinence. PAST SURGICAL HISTORY 1. Left lower extremity balloon angioplasty, atherectomy with stenting of left SFA in 2011. 2. Left transmetatarsal amputation with skin graft done in October 2011. 3. Debridement of left lower extremity in November of 2011. 4. In June 2012, he had repeat left lower extremity angioplasty. 5. In August 2012, the patient underwent left below-knee amputation. 6. Prior history of tonsillectomy. 7. Left lower lobe resection for cancer. 8. 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 ALLERGIES VANCOMYCIN SULFA TETANUS IMMUNOGLOBULIN FAMILY HISTORY Both his parents are . Father at the age of 39 from drinking. Mother around 70 years old. She had breast cancer. His three years ago from colon cancer. MEDICATIONS Current, 1. Tylenol as needed 2. Trazodone 100 mg at bedtime. 3. Ciprofloxacin 500 mg twice a day 4. Digoxin 0.125 mg daily. 5. Folic acid daily 6. Ativan 1 mg p.o. q 4 hrs p.r.n. 7. Ativan 2 mg p.o. q. 2 h p.r.n. 8. IV lorazepam p.r.n. for agitation and anxiety. 9. Nicotine patch 21 mg per 24-hour 10. Tramadol prn pain 11. Protonix 40 mg daily 12. Catapres 1 gram p.o. q.i.d. 13. Multivitamin daily REVIEW OF SYSTEMS The patient denies headache, loss of vision, double vision. Denies change in hearing, denies sore throat, dysphagia or odynophagia. He has chronic cough which has not significantly changed. Denies chest pain, dyspnea, orthopnea, paroxysmal nocturnal dyspnea. He denies vomiting. Denies melena or bright red blood per rectum. Urinary incontinence. He has to wear Depends. He has previous left below knee amputation. He has wheelchair at home. He does have prosthesis, however, he does not use it. He still feels somewhat depressed. Otherwise review of systems is negative for 12 systems except what is mentioned above. PHYSICAL EXAMINATION GENERAL: Chronically ill appearing unkempt elderly male lying in bed. He is awake, alert. He is oriented x3. VITAL SIGNS: Blood pressure for 142/70, pulse of 76, respirations 17, temperature 98.3. HEENT: Normocephalic, atraumatic. Extraocular movements are intact, round and reactive. No icterus or significant pallor. ENT: No throat congestion. No oral ulcers. The patient has lost his teeth. Ears clear. NECK: Supple with no JVD. No lymph node or bruits. CARDIOVASCULAR: S1-S2 audible. Regular rhythm. No murmur, rub or gallop. RESPIRATORY: Lungs are clear to auscultation. GI: Soft, protuberant, bulky, nontender. Positive bowel sounds. EXTREMITIES: He has left below knee amputation. His stump appeared clear. He has discolored thickened skin of his right lower extremity with evidence of hair loss. No pedal edema. NEUROLOGIC: He is oriented times three, no facial asymmetry. Moving bilateral upper and lower extremities. He has spasticity and muscle atrophy and contracture in his left hand. LABORATORY DATA May 16 - sodium 144, Potassium 3.6, chloride 101, bicarb 35, BUN 13, creatinine 0.97, glucose 86, calcium 8.0. Total cholesterol 103, LDL 34, HDL 50, triglycerides 91. White count 8.2, hemoglobin of 14.8, hematocrit 42.2, platelet count of 215. PT/INR normal. Alcohol level May 13 was 284. Urinalysis on May 15: Leukocyte esterase large, WBC 37, bacteria rate. His urine culture from May 13 was positive for Acinetobacter baumannii which is sensitive for antibiotic. IMAGING STUDIES Chest x-ray on May 13 did not reveal any acute finding. There is a skin fold left upper chest, old healed rib fracture in the left chest, old healed right clavicular fracture. ASSESSMENT 1. Alcohol intoxication, depression and suicidal ideation. 2. Recent urinary tract infection with Acinetobacter baumannii 3. History of hypertension 4. Peripheral arterial disease. 5. Chronic smoker 6. Chronic alcohol use 7. Prior history of lung cancer 8. Chronic urinary incontinence possible underlying prostate problems PLAN Continue psychiatric care per Dr. Godfrey. Continue DT prophylaxis with Ativan. Continue antidepressants. Continue Ciprofloxacin for four more days. Follow CBC, electrolytes. Repeat UA upon completion of antibiotics. I have counseled patient to discontinue smoking, advised him to completely abstain from it. Continue nicotine patch. Put on Pepcid for GI protection. Follow CBC and electrolytes. Thank you Dr. Godfrey for this consultation. I will follow the patient with you on a p.r.n. basis. MD HARJEET Robins/ /3:03 PM /9:26 AM MTDJackelin
--- NOTE | 2016-05-18 15:13 | HHI.PYPN ---
Subjective Remarks Patient seen in his room with nurse Renata, patient overall calm pleasant showing some frustration being restricted to his room though he continues to have very loose stools multiple times daily Review of Systems Other No somatic complaints today Objective Alert: Yes [place]: Person (ox4) Mood: Depressed Affect: Restricted Memory Intact: Comment (not formally tetsed) Hallucinations: Other (neghative) Delusions: No Delusion Type: Other (none noted) Suicidal: Ideation (pasive wishes) Homicidal: Ideation (denies) Insight/Judgement Very poor Labs Test 05/18/16 06:40 White Blood Count 6.7 TH/MM3 Red Blood Count 3.73 MIL/MM3 Hemoglobin 13.0 GM/DL Hematocrit 38.4 % Mean Corpuscular Volume 103.1 FL Mean Corpuscular Hemoglobin 34.9 PG Mean Corpuscular Hemoglobin 33.9 % Concent Red Cell Distribution Width 14.9 % Platelet Count 164 TH/MM3 Mean Platelet Volume 9.0 FL Sodium Level 142 MEQ/L Potassium Level 3.7 MEQ/L Chloride Level 108 MEQ/L Carbon Dioxide Level 23.8 MEQ/L Anion Gap 10 MEQ/L Blood Urea Nitrogen 13 MG/DL Creatinine 1.11 MG/DL Estimat Glomerular Filtration 65 ML/MIN Rate Random Glucose 107 MG/DL Calcium Level 8.5 MG/DL Vitals/IOs Vital Signs Date Time Temp Pulse Resp B/P Pulse Ox O2 Delivery O2 Flow Rate FiO2 05/18/16 05:57 97.6 91 16 154/70 97 05/15/16 12:01 Room Air Intake and Output 05/17/16 05/17/16 05/18/16 08:00 16:00 00:00 Intake Total 120 ml 720 ml 240 ml Balance 120 ml 720 ml 240 ml Assessment & Plan Problem List: (1) Alcohol use with alcohol-induced mood disorder ICD Code: F10.94 Assessment & Plan Estimated LOS: days patient continue somewhat depressed mildly confused, compliant medications. For now continue treatment Justification for Cont. Inpt. At this time patient was really decompensated placed in a lower level of care Discharge Planning To be determined Request HC Surrog/Guard Advoc?: No Nate Godfrey MD May 18, 2016 15:13
[2016-05-18 19:45] VITALS: BP 148/78; PULSE 107; RESP 16; TEMP 98.2; O2SAT 99
[2016-05-19 06:01] VITALS: BP 136/60; PULSE 70; RESP 18; TEMP 97.4; O2SAT 100
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
[2016-05-19] MEDS: NICOTINE 21 MG/24 HR PATCH T-DERMAL SCH (09:00)
[2016-05-19] MEDS: REMOVE OLD NICODERM (NICOTINE) PATCH TD SCH (09:00)
[2016-05-19] MEDS: SUCRALFATE 1 GM TAB PO SCH ×3 (09:35→17:21)
[2016-05-19] MEDS: CITALOPRAM HYDROBROMIDE 20 MG TAB PO SCH (09:35)
[2016-05-19] MEDS: DIGOXIN 0.125 MG TAB PO SCH (09:35)
[2016-05-19] MEDS: CIPROFLOXACIN 500 MG TAB PO SCH (09:35)
[2016-05-19] MEDS: THIAMINE HCL 100 MG TAB PO SCH (09:35)
[2016-05-19] MEDS: FOLIC ACID 1 MG TAB PO SCH (09:35)
[2016-05-19] MEDS: PANTOPRAZOLE SOD 40 MG DELAYED RELEASE TAB PO SCH (09:35)
[2016-05-19] MEDS: ACETAMINOPHEN 325 MG TAB PO PRN (18:15)
[2016-05-19] MEDS: LORazepam 2 MG TAB PO PRN (18:38)
[2016-05-19 19:17] VITALS: BP 137/82; PULSE 99; RESP 18; TEMP 98; O2SAT 99
[2016-05-20 05:32] VITALS: BP 121/63; PULSE 62; RESP 17; TEMP 98.2; O2SAT 98
[2016-05-20] MEDS: DIGOXIN 0.125 MG TAB PO SCH (08:38)
[2016-05-20] MEDS: FOLIC ACID 1 MG TAB PO SCH (08:38)
[2016-05-20] MEDS: CIPROFLOXACIN 500 MG TAB PO SCH ×2 (08:38→22:17)
[2016-05-20] MEDS: PANTOPRAZOLE SOD 40 MG DELAYED RELEASE TAB PO SCH (08:38)
[2016-05-20] MEDS: SUCRALFATE 1 GM TAB PO SCH ×4 (08:38→22:17)
[2016-05-20] MEDS: CITALOPRAM HYDROBROMIDE 20 MG TAB PO SCH (08:38)
[2016-05-20] MEDS: THIAMINE HCL 100 MG TAB PO SCH (08:38)
[2016-05-20] MEDS: REMOVE OLD NICODERM (NICOTINE) PATCH TD SCH (08:39)
[2016-05-20] MEDS: NICOTINE 21 MG/24 HR PATCH T-DERMAL SCH (08:39)
--- NOTE | 2016-05-20 12:08 | HHI.PYPN ---
Subjective Remarks Patient seen and examined with nursing staff. Chart reviewed. Case discussed with nursing staff. On my examination today, patient is in good spirits. He denies SI or HI. He denies side effects from medications. He is hopeful for discharge as soon as feasible. Review of Systems Other No reported physical complaints Objective Alert: Yes [place]: Person (once again O x 3) Mood: Calm Affect: Euthymic Memory Intact: Comment (not formally assessed) Hallucinations: Other (none) Delusions: No Delusion Type: Other (no evident delusional material) Suicidal: Ideation (denies SI) Homicidal: Ideation (denies HI) Insight/Judgement Fair Remarks No abnormal motor movements noted Labs Labs reviewed. B12 level is in process. Vitals/IOs Vital Signs Date Time Temp Pulse Resp B/P Pulse Ox O2 Delivery O2 Flow Rate FiO2 05/20/16 05:32 98.2 62 17 121/63 98 Intake and Output 05/19/16 05/19/16 05/20/16 08:00 16:00 00:00 Intake Total 240 ml 960 ml 1060 ml Balance 240 ml 960 ml 1060 ml Assessment & Plan Problem List: (1) Alcohol use with alcohol-induced mood disorder ICD Code: F10.94 Assessment & Plan Continue current psychotropics as ordered. Continue other medications and care as ordered. I have asked the nursing staff to call about the hospitalist consult which was ordered several days ago and is still pending. Justification for Cont. Inpt. Risk for decompensation Discharge Planning Per Dr. Godfrey Request HC Surrog/Guard Advoc?: No Mookie Ryan MD May 20, 2016 12:08
[2016-05-20 20:11] VITALS: BP 127/61; PULSE 66; RESP 16; TEMP 98.2; O2SAT 99
[2016-05-20] MEDS: traZODone HCL 50 MG TAB PO PRN (22:16)
[2016-05-20] MEDS: ACETAMINOPHEN 325 MG TAB PO PRN (22:17)
[2016-05-21 06:00] VITALS: BP 118/57; PULSE 73; RESP 18; TEMP 99.4; O2SAT 97
[2016-05-21] MEDS: REMOVE OLD NICODERM (NICOTINE) PATCH TD SCH (09:00)
[2016-05-21] MEDS: PANTOPRAZOLE SOD 40 MG DELAYED RELEASE TAB PO SCH (09:32)
[2016-05-21] MEDS: SUCRALFATE 1 GM TAB PO SCH ×2 (09:32→12:58)
[2016-05-21] MEDS: FOLIC ACID 1 MG TAB PO SCH (09:32)
[2016-05-21] MEDS: THIAMINE HCL 100 MG TAB PO SCH (09:32)
[2016-05-21] MEDS: CIPROFLOXACIN 500 MG TAB PO SCH (09:32)
[2016-05-21] MEDS: CITALOPRAM HYDROBROMIDE 20 MG TAB PO SCH (09:32)
[2016-05-21] MEDS: DIGOXIN 0.125 MG TAB PO SCH (09:32)
[2016-05-21] MEDS: NICOTINE 21 MG/24 HR PATCH T-DERMAL SCH (09:32)
[2016-05-21] MEDS ORDERED: FOLI1TAB4 PO (13:06)
[2016-05-21] MEDS ORDERED: CELE20TA PO (13:06)
[2016-05-21] MEDS ORDERED: CIPR-9 PO (13:06)
[2016-05-21] MEDS ORDERED: VITA100T2 PO (13:06)
[2016-05-21] MEDS ORDERED: CARA1TAB6 PO (13:06)
[2016-05-21] MEDS ORDERED: PANT40TA3 PO (13:06)
[2016-05-21] MEDS ORDERED: DIGO0.12 PO (13:06)
--- NOTE | 2016-05-21 13:13 | HHI.DS ---
Psychiatry Discharge Summary Inpatient Psychiatric care?: Yes Advance Directive: No Reason Not Provided: Due to Patient Condition Mental Health AdvanceDirective: No Health Care Proxy: No Admission Admission Date May 15, 2016 at 12:11 Admission Diagnosis: (1) Alcohol use with alcohol-induced mood disorder ICD Code: F10.94 (2) Alcohol intoxication ICD Code: F10.129 (3) Alcohol abuse ICD Code: F10.10 Brief History Patient is a 8-year-old white male who initially comes the emergency department voluntarily complaining of depression, having thoughts of wanting to kill himself. In the ED patient but alcohol level was 284. Patient is having multiple visits to [facility] ED most of them alcohol related multiple levels well over 2-300. At the present time patient sitting quietly in his bed on 2500 he is alert oriented at this time nurse Debi present throughout session. He states he does have an apartment where he stays acknowledges drinking every day basically wine he shows some memory deficits related to past detox and/or rehabilitation programs or legal issues. Both his family does denies suicidality. Does have urinary tract infection with acinobactor. That needs to be addressed by the hospitalist. 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 Hopeless to be short stay and he can return to his home will continue his schedule medications per the med reconciliation Tobacco Use In Past 30 Days: 5 or More Cigarettes/Day Alcohol Use: 4 or More Times Per Week Hospital Course Patient's course in the hospital was uneventful, he showed cooperative compliance from day of admission. He did follow the ciwa protocol without problems. Medications. He continues to denies suicidality homicidality voices or visions. At the present time patient states he wishes to be discharged return to his home. Patient is on a voluntary status. At this time he does not meet criteria for involuntary status. At this time patient met maximum benefit of this hospitalization. Posterior allow patient to be discharged from self with Rx 1 month of the schedule medications also three-day supply of his antibiotic. Patient states he does have doctor's choice that visits him physician and nurse once a week we'll verify that without counselor. Also patient follow-up with AA/NA Results Blood Pressure 118 / 57 Vital Signs Date Time Temp Pulse Resp B/P Pulse Ox O2 Delivery O2 Flow Rate FiO2 05/21/16 06:00 99.4 73 18 118/57 97 Blood alcohol level 284 Summary of Procedures None done Imaging Last Impressions Chest X-Ray 05/13/16 0000 Signed Impressions: Service Date/Time: Friday, May 13, 2016 18:39 - CONCLUSION: No acute cardiopulmonary disease and a probable skinfold overlapping the left upper chest could be further characterized with right-sided decubitus examination. Charis Hernandez MD Pending results at discharge: No Medications # of Antipsychotic meds at D/C: 0 Approp Antipsych med options 1 - Minimum of three failed multiple trials of monotherapy. 2 - Documented plan to taper to monotherapy due to previous use of multiple meds OR cross-taper in progress at D/C. 3 - Documentation of augmentation of Clozapine. 4 - Justification other than those listed in allowable values 1-3, document here : Discharge Discharge Date: May 21, 2016 Discharge Diagnosis: (1) Alcohol use with alcohol-induced mood disorder Diagnosis: Principal ICD Code: F10.94 (2) Alcohol intoxication Diagnosis: Secondary ICD Code: F10.129 (3) Alcohol abuse Diagnosis: Secondary ICD Code: F10.10 Mental Status Exam at Disch Patient calm cooperative alert and oriented, patient normal active, patient mood euthymic with good range of motion intensity of his affect, speech rate and rhythm within normal limits no formal thought disorders, auditory or visual hallucinations no delusions, insight judgment is poor to fair, cognition grossly intact Pt Condition on Discharge: Stable Discharge Disposition: Discharge Home Discharge Instructions Diet Instructions: As Tolerated, No Restrictions Activities you can perform: Regular-No Restrictions Other Activity Instructions: As tolerated with use of walker or wheelchair Scheduled Appointment: per patient's statement doctor's choice in home Discharge Time <= 30 minutes Discharge/Advance Care Plan Health Problems: (1) Alcohol use with alcohol-induced mood disorder Goals to promote your health * To prevent worsening of your condition and complications * To maintain your health at the optimal level Directions to meet your goals Take your medications as prescribed Follow your dietary instruction Follow activity as directed Keep your appointments as scheduled Take your immunizations and boosters as scheduled If your symptoms worsen call your PCP, if no PCP go to Urgent Care Center or Emergency Room For 10/12 questions related to your inpatient stay or results of tests pending at discharge, please contact Dr. Nate Godfrey at Smoking is Dangerous to Your Health. Avoid second hand smoking Problem Qualifiers (1) Alcohol intoxication: Qualified Code: F10.129 - Alcohol intoxication, with unspecified complication Nate Godfrey MD May 21, 2016 13:13
== END 2016-05-21 15:55 | disposition home health service (06) | DRG 897 ==
LOC: NEPE 16:24 → H250 05-15 12:11
PROVIDERS: ADMIT Psychiatry & Neurology Psychiatry; ATTEND Psychiatry & Neurology Psychiatry
DX: F10.24 Alcohol dependence with alcohol-induced mood disorder (principal); R45.851 Suicidal ideations; G62.9 Polyneuropathy, unspecified; J44.9 Chronic obstructive pulmonary disease, unspecified; Y90.8 Blood alcohol level of 240 mg/100 ml or more; K21.9 Gastro-esophageal reflux disease without esophagitis; I10 Essential (primary) hypertension; F17.210 Nicotine dependence, cigarettes, uncomplicated; E86.0 Dehydration; F10.229 Alcohol dependence with intoxication, unspecified; J45.909 Unspecified asthma, uncomplicated; I73.9 Peripheral vascular disease, unspecified; E78.5 Hyperlipidemia, unspecified; F41.9 Anxiety disorder, unspecified; B96.89 Other specified bacterial agents as the cause of diseases classified elsewhere; Z85.118 Personal history of other malignant neoplasm of bronchus and lung; Z91.14 Patient's other noncompliance with medication regimen; Z88.2 Allergy status to sulfonamides; Z89.512 Acquired absence of left leg below knee; Z86.73 Personal history of transient ischemic attack (TIA), and cerebral infarction without residual deficits; Z86.14 Personal history of Methicillin resistant Staphylococcus aureus infection
CPT/HCPCS: 71010; 80048; 80053; 80061; 80301; 80320; 81001; 82607; 83036; 83605; 83690; 85025; 85027; 85610; 85730; 87077; 87086; 87186; 93005; 96361; 96365; 96366; 96375; G0479; J2060; J3411; J7030

== ENCOUNTER 2016-05-31 14:22 | Emergency (ER) | payer MEDICARE, OTHER ==
[~2016-05-31] VITALS: Ht 180.3 cm; Wt 60.0 kg
[~2016-05-31 14:22] MED LIST changes: +CARA1TAB6 PO; +CELE20TA PO; +CIPR-9 PO; -CITA20TA4 PO; -OMEP40CA2 PO; +PANT40TA3 PO; -SUCR1TAB PO
[2016-05-31 14:25] VITALS: BP 104/70; PULSE 95; RESP 12; TEMP 98.2; O2SAT 95
--- NOTE | 2016-05-31 15:07 | PD ---
HPI Chief Complaint: Pain: Acute or Chronic Time Seen by Provider: 15:05 Travel History International Travel<30 days: No Contact w/Intl Traveler<30days: No Traveled to known affect area: No History of Present Illness HPI 71-year-old male presents to the emergency department complaining of generalized pain. He also states he has thoughts of hurting himself. The patient was also seen on May 13, 2016 complaining of the same issues. He was admitted to [facility] and was later discharged. He states that he saw his primary care physician on Saturday and was given 3 prescriptions for his generalized pain, but he is unsure what they were. He states that the pharmacy has not yet delivered these prescriptions. He states that he has thoughts of hurting himself with a resident programs assistant knife because "I am sick of living this way". He states that he looks of the resident programs assistant knife every day and thinks about hurting himself. Patient has a history of status post left BKA for gangrene, hypertension, COPD, tobacco abuse. Patient states his pain is from his neck all the way down to his feet. Patient has been seen multiple times in the emergency department for alcohol intoxication. Patient does not appear to be intoxicated at this time and denies drinking alcohol the past 2 days. Patient denies any fevers or chills. According the chart, the patient also has a history of bipolar disorder, depression, anxiety. PFSH Past Medical History Asthma: Yes Autoimmune Disease: No Blood Disorders: No Bipolar Disorder: Yes Anxiety: Yes Depression: Yes Heart Rhythm Problems: No Cancer: No Cardiovascular Problems: No High Cholesterol: No Chemotherapy: No Chest Pain: No Congestive Heart Failure: No COPD: Yes Cerebrovascular Accident: Yes Diabetes: No Diminished Hearing: No Endocrine: No Gastrointestinal Disorders: Yes GERD: Yes Genitourinary: No Hepatitis: No Hiatal Hernia: No Hypertension: Yes Immune Disorder: No Implanted Vascular Access Dvce: Yes Musculoskeletal: Yes (RHABDO) Neurologic: Yes (WEAKNESS LEFT SIDE) Psychiatric: Yes Reproductive: No Respiratory: Yes (COPD) Integumentary: No Immunizations Current: Yes Pancreatitis: No Radiation Therapy: No Seizures: No Sleep Apnea: No Thyroid Disease: No Past Surgical History Abdominal Surgery: No Appendectomy: No Body Medical Devices: ivc filter inplace, STENT IN LEG Genitourinary Surgery: No Gynecologic Surgery: No Oral Surgery: Yes Pacemaker: No Thoracic Surgery: Yes (2011 LEFT LOBE THORACOTOMY) Tonsillectomy: Yes Other Surgery: Yes Social History Alcohol Use: Yes (DAILY 1 BOTTLE WINE) Tobacco Use: Yes (05/21 PPD) Substance Use: No Allergies-Medications (Allergen,Severity, Reaction): Coded Allergies: Tetanus Immune Globulin (Verified Allergy, Severe, SWELLING IN ARM, ) Vancomycin (Verified Allergy, Severe, Rash, 05/31/16) Sulfa (Verified Allergy, Intermediate, Rash, 05/31/16) *MDRO Multi-Drug Resistant Organism (Verified Adverse Reaction, Unknown, MRSA, 05/31/16) 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 Reported Meds & Prescriptions Reported Meds & Active Scripts Active Vitamin B-1 (Thiamine HCl) 100 Mg Tab 100 Mg PO DAILY Carafate (Sucralfate) 1 Gm Tab 1 Gm PO QID Pantoprazole (Pantoprazole Sodium) 40 Mg Tab 40 Mg PO DAILY Folate (Folic Acid) 1 Mg Tab 1 Mg PO DAILY Digoxin 0.125 Mg Tab 0.125 Mg PO DAILY Celexa (Citalopram Hydrobromide) 20 Mg Tab 20 Mg PO DAILY Chlordiazepoxide (Chlordiazepoxide HCl) 25 Mg Cap 25 Mg PO TID PRN Ultram (Tramadol HCl) 50 Mg Tab 50 Mg PO Q6H PRN Hydrocodone-Acetaminophen 5-325 mg Tab 1 Tab PO Q6H PRN Trazodone (Trazodone HCl) 50 Mg Tab 100 Mg PO HS PRN Review of Systems Except as stated in HPI: all other systems reviewed are Neg Physical Exam Narrative GENERAL: Thin elderly, disheveled male patient, afebrile. SKIN: Warm and dry. HEAD: Normocephalic. Atraumatic. EYES: No scleral icterus. No injection or drainage. NECK: Supple, trachea midline. No JVD or lymphadenopathy. CARDIOVASCULAR: Regular rate and rhythm without murmurs, gallops, or rubs. RESPIRATORY: Breath sounds equal bilaterally. No accessory muscle use. Lungs sounds are clear to auscultation. GASTROINTESTINAL: Abdomen soft, non-tender, nondistended. MUSCULOSKELETAL: No cyanosis, or edema. Patient has left BKA. BACK: Nontender without obvious deformity. No CVA tenderness. PSYCHIATRIC: No delusional thought processes. No hallucinations. Data Data Last Documented VS Vital Signs Date Time Temp Pulse Resp B/P Pulse Ox O2 Delivery O2 Flow Rate FiO2 05/31/16 14:25 98.2 95 12 104/70 95 Room Air Orders Complete Blood Count With Diff (05/31/16 15:02) Comprehensive Metabolic Panel (05/31/16 15:02) Urinalysis - C+S If Indicated (05/31/16 15:02) Drug Screen, Random Urine (05/31/16 15:02) Alcohol (Ethanol) (05/31/16 15:02) Psych Screen (05/31/16 15:02) Potassium Chloride (Kcl) (05/31/16 17:30) Labs Laboratory Tests Test 05/31/16 05/31/16 16:00 17:15 White Blood Count 6.8 TH/MM3 Red Blood Count 4.11 MIL/MM3 Hemoglobin 14.3 GM/DL Hematocrit 41.3 % Mean Corpuscular Volume 100.4 FL Mean Corpuscular Hemoglobin 34.9 PG Mean Corpuscular Hemoglobin 34.7 % Concent Red Cell Distribution Width 14.5 % Platelet Count 387 TH/MM3 Mean Platelet Volume 8.6 FL Neutrophils (%) (Auto) 51.8 % Lymphocytes (%) (Auto) 33.7 % Monocytes (%) (Auto) 9.1 % Eosinophils (%) (Auto) 4.2 % Basophils (%) (Auto) 1.2 % Neutrophils # (Auto) 3.5 TH/MM3 Lymphocytes # (Auto) 2.3 TH/MM3 Monocytes # (Auto) 0.6 TH/MM3 Eosinophils # (Auto) 0.3 TH/MM3 Basophils # (Auto) 0.1 TH/MM3 CBC Comment DIFF FINAL Differential Comment Sodium Level 138 MEQ/L Potassium Level 3.2 MEQ/L Chloride Level 103 MEQ/L Carbon Dioxide Level 26.4 MEQ/L Anion Gap 9 MEQ/L Blood Urea Nitrogen 5 MG/DL Creatinine 0.95 MG/DL Estimat Glomerular Filtration 78 ML/MIN Rate Random Glucose 94 MG/DL Calcium Level 8.3 MG/DL Total Bilirubin 0.4 MG/DL Aspartate Amino Transf 17 U/L (AST/SGOT) Alanine Aminotransferase 15 U/L (ALT/SGPT) Alkaline Phosphatase 96 U/L Total Protein 6.3 GM/DL Albumin 3.2 GM/DL Ethyl Alcohol Level 114 MG/DL Urine Color LIGHT-YELLOW Urine Turbidity CLEAR Urine pH 5.0 Urine Specific [place] 1.004 Urine Protein NEG mg/dL Urine Glucose (UA) NEG mg/dL Urine Ketones NEG mg/dL Urine Occult Blood NEG Urine Nitrite NEG Urine Bilirubin NEG Urine Urobilinogen LESS THAN 2.0 MG/DL Urine Leukocyte Esterase NEG Urine RBC LESS THAN 1 /hpf Urine WBC LESS THAN 1 /hpf Urine Squamous Epithelial 2 /hpf Cells Urine Hyaline Casts 3 /lpf Urine Mucus FEW /lpf Microscopic Urinalysis Comment CULT NOT INDICATED Urine Opiates Screen NEG Urine Barbiturates Screen NEG Urine Amphetamines Screen NEG Urine Benzodiazepines Screen NEG Urine Cocaine Screen NEG Urine Cannabinoids Screen NEG MDM Medical Decision Making Medical Screen Exam Complete: Yes Emergency Medical Condition: Yes Medical Record Reviewed: Yes Differential Diagnosis Chronic pain versus depression versus anxiety versus bipolar disorder versus alcohol abuse Narrative Course 71-year-old male presents to the emergency department complaining of generalized pain as well as thoughts of hurting himself. Patient states the generalized pain is chronic and he is arty seen his primary care physician for this. He has 3 prescriptions that he has not yet received. CBC, CMP, alcohol level, urine drug screen, UA are ordered and pending. CBC shows no acute abnormalities. CMP shows hypokalemia at 3.2. Alcohol level is 114. UDS is negative. UA shows no evidence of acute infection. Patient is given 40 meq of potassium by mouth. Patient is medically cleared for psychiatric screening and disposition. Mental health screening discussed with the patient. Psychiatric screen ordered. Diagnosis Primary Impression: Bipolar disorder Qualified Code: F31.32 - Bipolar affective disorder, currently depressed, moderate Additional Instructions: Patient is medically cleared for psychiatric screening and disposition. Condition: Stable StevoRebecca May 31, 2016 15:07
[2016-05-31 16:38] LABS: AUTOMATED NEUTROPHIL # 3.5 TH/MM3 (1.8-7.7); BASOPHIL # 0.1 TH/MM3 (0-0.2); BASOPHIL % 1.2 % (0.0-2.0); EOSINOPHIL # 0.3 TH/MM3 (0-0.4); EOSINOPHIL % 4.2 % (0.0-4.0); HEMATOCRIT 41.3 % (39.0-51.0); HEMO FLAGS DIFF FINAL; LYMPH % 33.7 % (9.0-44.0); LYMPHOCYTE # 2.3 TH/MM3 (1.0-4.8); MEAN CELL VOLUME 100.4 FL (80.0-100.0); MEAN CORPUSCULAR HEMOGLOBIN 34.9 PG (27.0-34.0); MEAN CORPUSCULAR HGB CONC 34.7 % (32.0-36.0); MONO % 9.1 % (0.0-8.0); NEUT % 51.8 % (16.0-70.0); PLATELET COUNT 387 TH/MM3 (150-450); RED BLOOD COUNT 4.11 MIL/MM3 (4.50-5.90); RED CELL DISTRIBUTION WIDTH 14.5 % (11.6-17.2); WHITE BLOOD COUNT 6.8 TH/MM3 (4.0-11.0)
[2016-05-31 17:18] LABS: ALT (GPT) 15 U/L (12-78); ANION GAP 9 MEQ/L (5-15); AST (GOT) 17 U/L (15-37); BICARBONATE 26.4 MEQ/L (21.0-32.0); BLOOD UREA NITROGEN 5 MG/DL (7-18); CHLORIDE 103 MEQ/L (98-107); GLOMERULAR FILTRATION RATE 78 ML/MIN (>89); POTASSIUM 3.2 MEQ/L (3.5-5.1); SODIUM (NA) 138 MEQ/L (136-145)
[2016-05-31 17:21] LABS: ALKALINE PHOSPHATASE 96 U/L (45-117); TOTAL BILIRUBIN ADULT 0.4 MG/DL (0.2-1.0)
[2016-05-31] MEDS ORDERED: POTASSIUM CHLORIDE 20 MEQ CONTROLLED RELEASE TAB PO ONE (17:30)
[2016-05-31 18:02] LABS: BLOOD, URINE NEG (NEG); COMMENT (UR) CULT NOT INDICATED; CULTURE IF INDICATED CULT NOT INDICATED; GLUCOSE,URINE NEG (NEG); HYALINE CAST, URINE 3 /lpf (RARE); KETONE, URINE NEG (NEG); MUCUS URINE FEW /lpf (OCC); NITRITE,URINE NEG (NEG); SQUAMOUS EPITHELIAL CELL URINE 2 /hpf (0-5); URINE COLOR LIGHT-YELLOW (YELLW/STRAW)
[2016-05-31 18:14] LABS: AMPHETAMINE, URINE NEG (NEG); BARBITURATES, URINE NEG (NEG); COCAINE, URINE NEG (NEG)
[2016-05-31 20:28] VITALS: BP 155/70; PULSE 80; RESP 18; O2SAT 98
[2016-05-31] MEDS ORDERED: OLANZapine 10 MG TAB PO ONE (21:45)
[2016-05-31] MEDS ORDERED: QUEtiapine FUMARATE 100 MG TAB PO ONE (21:45)
[2016-05-31 22:00] VITALS: BP 121/66; PULSE 77; RESP 18; O2SAT 97
[2016-06-01 02:00] VITALS: BP 111/62; PULSE 88; RESP 18; O2SAT 95
[2016-06-01 06:00] VITALS: BP 117/68; PULSE 82; RESP 18; O2SAT 95
[2016-06-01 07:10] VITALS: BP 150/78; PULSE 80; RESP 17; TEMP 98.1; O2SAT 98
--- NOTE | 2016-06-01 09:49 | PD ---
History of Present Illness Chief Complaint: Psychiatric Symptoms Time Seen by Provider: 09:45 Travel History International Travel<30 Days: No Contact w/Intl Traveler<30days: No Known affected area: No Legal Status Legal Status: Voluntary History of Present Illness: History of Present Illness HPI 71-year-old male with hx of MDD, alcohol abuse who presents to the emergency department on a voluntary basis complaining of generalized pain. As per ed documentation" he also states he has thoughts of hurting himself." He states that he has thoughts of hurting himself with a cardiology teacher knife because "I am sick of living this way". He states that he looks of the cardiology teacher knife every day and thinks about hurting himself. As per EMR this patient was admitted [place] [facility] on May [place] for similar complaints. At that time he requested to be discharged home after a 6 day stay. He reports he has not been drinking since his discharge but presents with BAL of 114. Patient seen in ED. Awake, alert and oriented. Verbal, engaging and cooperative. Hygiene is poor. Does not report any hallucinations and does not appear to be internally stimulated. Affect is restricted and his mod is sad. Patient states " I cannot take care of myself and I am trying to get into a [facility]. One of the nurses that comes to the house, Rima, told me if I come to the hospital I could get help. What I want is help to be able to get into a [facility]". I', trying to get help watermaster not hurt myself". Patient at this time does not present suicidal ideation, intent or plan. No jordan and no psychosis. PFSH Past Medical History Asthma: Yes Autoimmune Disease: No Blood Disorders: No Bipolar Disorder: Yes Anxiety: Yes Depression: Yes Heart Rhythm Problems: No Cancer: No Cardiovascular Problems: No High Cholesterol: No Chemotherapy: No Chest Pain: No Congestive Heart Failure: No COPD: Yes Cerebrovascular Accident: Yes Diabetes: No Diminished Hearing: No Endocrine: No Gastrointestinal Disorders: Yes GERD: Yes Genitourinary: No Hepatitis: No Hiatal Hernia: No Hypertension: Yes Immune Disorder: No Implanted Vascular Access Dvce: Yes Medical other: Yes (GERD) Musculoskeletal: Yes (RHABDO) Neurologic: Yes (WEAKNESS LEFT SIDE) Psychiatric: Yes Reproductive: No Respiratory: Yes (COPD) Integumentary: No Immunizations Current: Yes Pancreatitis: No Radiation Therapy: No Seizures: No Sleep Apnea: No Thyroid Disease: No Tetanus Vaccination: < 5 Years Influenza Vaccination: Yes Past Surgical History Abdominal Surgery: No Appendectomy: No Body Medical Devices: ivc filter inplace, STENT IN LEG Genitourinary Surgery: No Gynecologic Surgery: No Oral Surgery: Yes Pacemaker: No Thoracic Surgery: Yes (2010 LEFT LOBE THORACOTOMY) Tonsillectomy: Yes Other Surgery: Yes (L-BTK amputation) Psychiatric History Psychiatric History Hx Psychiatric Treatment: reports treatmetn at several hospitals including [facility]. [place] [facility] of Inpatient Treatment: Yes (Discharged on May 21, 2016) Guns or firearms in home: No Social History x4 yeras. Estranged from his 3 adult children. Lives by himself in a public housing apartment. Retired . 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 Reported Meds & Prescriptions Reported Meds & Active Scripts Active Vitamin B-1 (Thiamine HCl) 100 Mg Tab 100 Mg PO DAILY Carafate (Sucralfate) 1 Gm Tab 1 Gm PO QID Pantoprazole (Pantoprazole Sodium) 40 Mg Tab 40 Mg PO DAILY Folate (Folic Acid) 1 Mg Tab 1 Mg PO DAILY Digoxin 0.125 Mg Tab 0.125 Mg PO DAILY Celexa (Citalopram Hydrobromide) 20 Mg Tab 20 Mg PO DAILY Chlordiazepoxide (Chlordiazepoxide HCl) 25 Mg Cap 25 Mg PO TID PRN Ultram (Tramadol HCl) 50 Mg Tab 50 Mg PO Q6H PRN Hydrocodone-Acetaminophen 5-325 mg Tab 1 Tab PO Q6H PRN Trazodone (Trazodone HCl) 50 Mg Tab 100 Mg PO HS PRN Review of Systems Constitutional: COMPLAINS OF: Fatigue Endocrine: DENIES: Heat/cold intolerance, Polydipsia, Polyuria, Polyphagia Eyes: DENIES: Blurred vision, Diplopia, Eye inflammation, Eye pain, Vision loss , Photosensitivity, Double Vision Ears, nose, mouth, throat: DENIES: Tinnitus, Hearing loss, Vertigo, Nasal discharge, Oral lesions, Throat pain, Hoarseness, Ear Pain, Running Nose, Epistaxis, Sinus Pain, Toothache, Odynophagia Respiratory: DENIES: Apneas, Cough, Snoring, Wheezing, Hemoptysis, Sputum production, Shortness of breath Cardiovascular: DENIES: Chest pain, Palpitations, Syncope, Dyspnea on Exertion , PND, Lower Extremity Edema, Orthopnea, Claudication Gastrointestinal: DENIES: Abdominal pain, Black stools, Bloody stools, Constipation, Diarrhea, Nausea, Vomiting, Difficulty Swallowing, Anorexia Musculoskeletal: COMPLAINS OF: Joint pain, Muscle aches, Back pain, Neck pain Integumentary: DENIES: Abnormal pigmentation, Nail changes, Pruritus, Rash Hematologic/lymphatic: DENIES: Bruising, Lymphadenopathy Neurologic: DENIES: Abnormal gait, Headache, Localized weakness, Paresthesias, Seizures, Speech Problems, Tremor, Poor Balance Psychiatric: COMPLAINS OF: Depression Exam Alert: Yes [place]: Person, Date (Jun 02, 2016) Mood: Calm Affect: Restricted Speech: Clear Eye Contact: Normal Memory Intact: Comment (not impaired) Delusions: No Suicidal: Ideation (deneis any) Homicidal: Ideation (denies any) Insight/Judgement poor. not impaired MDM Medical Decision Making Medical Record Reviewed: Yes Assessment/Plan 71 year old on a voluntary basis who is seeking assistance for placement in a [facility]. He reports that his social studies department chair told him to come to the hospital to obtain such help with placement of Rima a social studies department chair. He was recently discharged from inpatient psychiatric care at his request. At this time patient in need of watermaster placement and that is what he is requesting.He denies any suicidal ideation, intent or plan and at this time does not meet criteria for inpatient psychiatric treatment.. Case is discussed with RN as well as with ed charge nurse Rose Mary Celaya. She has contacted case management regarding disposition. Orders Complete Blood Count With Diff (05/31/16 15:02) Comprehensive Metabolic Panel (05/31/16 15:02) Urinalysis - C+S If Indicated (05/31/16 15:02) Drug Screen, Random Urine (05/31/16 15:02) Alcohol (Ethanol) (05/31/16 15:02) Psych Screen (05/31/16 15:02) Potassium Chloride (Kcl) (05/31/16 17:30) Diet Heart Healthy (05/31/16 Dinner) Results Vital Signs Date Time Temp Pulse Resp B/P Pulse Ox O2 Delivery O2 Flow Rate FiO2 06/01/16 07:10 80 17 06/01/16 07:10 98.1 80 17 150/78 98 Room Air 06/01/16 06:00 82 18 117/68 95 Room Air 06/01/16 02:00 88 18 111/62 95 Room Air 05/31/16 22:00 77 18 121/66 97 Room Air 05/31/16 20:28 80 18 155/70 98 Room Air 05/31/16 14:25 98.2 95 12 104/70 95 Room Air Laboratory Tests Test 05/31/16 05/31/16 16:00 17:15 White Blood Count 6.8 Red Blood Count 4.11 Hemoglobin 14.3 Hematocrit 41.3 Mean Corpuscular Volume 100.4 Mean Corpuscular Hemoglobin 34.9 Mean Corpuscular Hemoglobin 34.7 Concent Red Cell Distribution Width 14.5 Platelet Count 387 Mean Platelet Volume 8.6 Neutrophils (%) (Auto) 51.8 Lymphocytes (%) (Auto) 33.7 Monocytes (%) (Auto) 9.1 Eosinophils (%) (Auto) 4.2 Basophils (%) (Auto) 1.2 Neutrophils # (Auto) 3.5 Lymphocytes # (Auto) 2.3 Monocytes # (Auto) 0.6 Eosinophils # (Auto) 0.3 Basophils # (Auto) 0.1 CBC Comment DIFF FINAL Differential Comment Sodium Level 138 Potassium Level 3.2 Chloride Level 103 Carbon Dioxide Level 26.4 Anion Gap 9 Blood Urea Nitrogen 5 Creatinine 0.95 Estimat Glomerular Filtration 78 Rate Random Glucose 94 Calcium Level 8.3 Total Bilirubin 0.4 Aspartate Amino Transf 17 (AST/SGOT) Alanine Aminotransferase 15 (ALT/SGPT) Alkaline Phosphatase 96 Total Protein 6.3 Albumin 3.2 Ethyl Alcohol Level 114 Urine Color LIGHT-YELLOW Urine Turbidity CLEAR Urine pH 5.0 Urine Specific [place] 1.004 Urine Protein NEG Urine Glucose (UA) NEG Urine Ketones NEG Urine Occult Blood NEG Urine Nitrite NEG Urine Bilirubin NEG Urine Urobilinogen LESS THAN 2.0 Urine Leukocyte Esterase NEG Urine RBC LESS THAN 1 Urine WBC LESS THAN 1 Urine Squamous Epithelial 2 Cells Urine Hyaline Casts 3 Urine Mucus FEW Microscopic Urinalysis Comment CULT NOT INDICATED Urine Opiates Screen NEG Urine Barbiturates Screen NEG Urine Amphetamines Screen NEG Urine Benzodiazepines Screen NEG Urine Cocaine Screen NEG Urine Cannabinoids Screen NEG Diagnosis Primary Impression: Bipolar disorder Additional Impression: Alcohol dependence Psychiatrically Cleared: Yes Additional Instructions: Patient is medically cleared for psychiatric screening and disposition. Med/ Other Pt Specific Info: No Change to Meds Condition: Stable Problem Qualifiers Primary Impression: Bipolar disorder Qualified Code: F31.32 - Bipolar affective disorder, currently depressed, moderate Additional Impression: Alcohol dependence Qualified Code: F10.20 - Uncomplicated alcohol dependence Josselin Arriaga Jun 01, 2016 09:49
[2016-06-01 11:00] VITALS: BP_SYST 120; BP_SYST 130; BP_DIAS 78; PULSE 76; RESP 17; TEMP 97.8; O2SAT 99
--- NOTE | 2016-06-01 12:42 | PD ---
Physical Exam Date Seen by Provider: Jun 01, 2016 Data Data Last Documented VS Vital Signs Date Time Temp Pulse Resp B/P Pulse Ox O2 Delivery O2 Flow Rate FiO2 06/01/16 11:00 97.8 76 17 130/78 99 Room Air Orders Complete Blood Count With Diff (05/31/16 15:02) Comprehensive Metabolic Panel (05/31/16 15:02) Urinalysis - C+S If Indicated (05/31/16 15:02) Drug Screen, Random Urine (05/31/16 15:02) Alcohol (Ethanol) (05/31/16 15:02) Psych Screen (05/31/16 15:02) Potassium Chloride (Kcl) (05/31/16 17:30) Diet Heart Healthy (05/31/16 Dinner) Case Management Consult (06/01/16 ) Labs Laboratory Tests Test 05/31/16 05/31/16 16:00 17:15 White Blood Count 6.8 TH/MM3 Red Blood Count 4.11 MIL/MM3 Hemoglobin 14.3 GM/DL Hematocrit 41.3 % Mean Corpuscular Volume 100.4 FL Mean Corpuscular Hemoglobin 34.9 PG Mean Corpuscular Hemoglobin 34.7 % Concent Red Cell Distribution Width 14.5 % Platelet Count 387 TH/MM3 Mean Platelet Volume 8.6 FL Neutrophils (%) (Auto) 51.8 % Lymphocytes (%) (Auto) 33.7 % Monocytes (%) (Auto) 9.1 % Eosinophils (%) (Auto) 4.2 % Basophils (%) (Auto) 1.2 % Neutrophils # (Auto) 3.5 TH/MM3 Lymphocytes # (Auto) 2.3 TH/MM3 Monocytes # (Auto) 0.6 TH/MM3 Eosinophils # (Auto) 0.3 TH/MM3 Basophils # (Auto) 0.1 TH/MM3 CBC Comment DIFF FINAL Differential Comment Sodium Level 138 MEQ/L Potassium Level 3.2 MEQ/L Chloride Level 103 MEQ/L Carbon Dioxide Level 26.4 MEQ/L Anion Gap 9 MEQ/L Blood Urea Nitrogen 5 MG/DL Creatinine 0.95 MG/DL Estimat Glomerular Filtration 78 ML/MIN Rate Random Glucose 94 MG/DL Calcium Level 8.3 MG/DL Total Bilirubin 0.4 MG/DL Aspartate Amino Transf 17 U/L (AST/SGOT) Alanine Aminotransferase 15 U/L (ALT/SGPT) Alkaline Phosphatase 96 U/L Total Protein 6.3 GM/DL Albumin 3.2 GM/DL Ethyl Alcohol Level 114 MG/DL Urine Color LIGHT-YELLOW Urine Turbidity CLEAR Urine pH 5.0 Urine Specific [place] 1.004 Urine Protein NEG mg/dL Urine Glucose (UA) NEG mg/dL Urine Ketones NEG mg/dL Urine Occult Blood NEG Urine Nitrite NEG Urine Bilirubin NEG Urine Urobilinogen LESS THAN 2.0 MG/DL Urine Leukocyte Esterase NEG Urine RBC LESS THAN 1 /hpf Urine WBC LESS THAN 1 /hpf Urine Squamous Epithelial 2 /hpf Cells Urine Hyaline Casts 3 /lpf Urine Mucus FEW /lpf Microscopic Urinalysis Comment CULT NOT INDICATED Urine Opiates Screen NEG Urine Barbiturates Screen NEG Urine Amphetamines Screen NEG Urine Benzodiazepines Screen NEG Urine Cocaine Screen NEG Urine Cannabinoids Screen NEG MDM Supervised Visit with DANNY: No Differential Diagnosis Please see previous records Narrative Course Please see previous history of present illness and psychiatric workup as well as psychiatric evaluation note I did not initially see patient upon presentation to ER, I was asked to dispo patient with diagnoses of bipolar disorder and alcohol abuse. I did not participate in medical care patient. manager erp was involved in this case, patient is trying to get into a long term, as per family independence case manager, patient does not fit criteria to be minute to long term. As per psychiatric screener, patient can be safely discharged home with outpatient follow-up. Diagnosis Primary Impression: Bipolar disorder Qualified Code: F31.32 - Bipolar affective disorder, currently depressed, moderate Additional Impression: Alcohol abuse Patient Instructions: General Instructions Additional Instruction: Patient is medically cleared for psychiatric screening and disposition. Disposition: 01 DISCHARGE HOME Condition: Stable Caroline Moore DO Jun 01, 2016 12:42
[2016-06-01 15:08] VITALS: BP 120/78; TEMP 97.8
== END 2016-06-01 15:08 | disposition home or self-care (01) ==
LOC: NEPB 14:22 → NEPA 06-01 15:08
DX: F31.9 Bipolar disorder, unspecified (principal); I10 Essential (primary) hypertension; F10.20 Alcohol dependence, uncomplicated; F17.210 Nicotine dependence, cigarettes, uncomplicated; J44.9 Chronic obstructive pulmonary disease, unspecified; F41.8 Other specified anxiety disorders; R45.851 Suicidal ideations; Z89.512 Acquired absence of left leg below knee; Y90.5 Blood alcohol level of 100-119 mg/100 ml
CPT/HCPCS: 80053; 80307; 80320; 81001; 85025; 99285

== ENCOUNTER 2016-06-09 20:54 | Emergency (ER) | payer MEDICARE, OTHER ==
[~2016-06-09] VITALS: Ht 175.3 cm; Wt 65.9 kg
[~2016-06-09 20:54] MED LIST changes: -CIPR-9 PO
[2016-06-09 21:02] VITALS: RESP 18; TEMP 97.6
[2016-06-09 21:09] VITALS: BP 110/51
[2016-06-09 21:27] VITALS: PULSE 74; O2SAT 98
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
[2016-06-09 22:17] LABS: AUTOMATED NEUTROPHIL # 5.3 TH/MM3 (1.8-7.7); BASOPHIL # 0.1 TH/MM3 (0-0.2); BASOPHIL % 1.2 % (0.0-2.0); EOSINOPHIL # 0.4 TH/MM3 (0-0.4); HEMATOCRIT 36.8 % (39.0-51.0); HEMO FLAGS DIFF FINAL; LYMPH % 31.8 % (9.0-44.0); LYMPHOCYTE # 3.2 TH/MM3 (1.0-4.8); MEAN CELL VOLUME 100.9 FL (80.0-100.0); MEAN CORPUSCULAR HEMOGLOBIN 34.5 PG (27.0-34.0); MEAN CORPUSCULAR HGB CONC 34.2 % (32.0-36.0); MONO % 10.1 % (0.0-8.0); NEUT % 52.9 % (16.0-70.0); PLATELET COUNT 225 TH/MM3 (150-450); RED BLOOD COUNT 3.64 MIL/MM3 (4.50-5.90); RED CELL DISTRIBUTION WIDTH 14.2 % (11.6-17.2)
[2016-06-09 22:41] LABS: ANION GAP 9 MEQ/L (5-15)
[2016-06-09 22:45] LABS: ALKALINE PHOSPHATASE 145 U/L (45-117); ALT (GPT) 10 U/L (12-78); AST (GOT) 11 U/L (15-37); BICARBONATE 29.2 MEQ/L (21.0-32.0); BLOOD UREA NITROGEN 6 MG/DL (7-18); CHLORIDE 102 MEQ/L (98-107); GLOMERULAR FILTRATION RATE 68 ML/MIN (>89); POTASSIUM 3.4 MEQ/L (3.5-5.1); SODIUM (NA) 140 MEQ/L (136-145); TOTAL BILIRUBIN ADULT 0.3 MG/DL (0.2-1.0)
[2016-06-09] MEDS ORDERED: POTASSIUM CHLORIDE 20 MEQ CONTROLLED RELEASE TAB PO ONE (23:30)
[2016-06-10 01:40] VITALS: BP 120/58; PULSE 75; RESP 16; O2SAT 95
[2016-06-10 02:00] LABS: AMPHETAMINE, URINE NEG (NEG); BARBITURATES, URINE NEG (NEG); COCAINE, URINE NEG (NEG)
[2016-06-10 05:50] VITALS: BP 144/68; PULSE 97; RESP 18; O2SAT 97
[2016-06-10 09:40] VITALS: BP 144/67; PULSE 72; RESP 18; TEMP 98.3; O2SAT 97
--- NOTE | 2016-06-10 15:46 | MB ---
cc: KATHERIN LEPEDRA DATE OF CONSULTATION 06/10/2016 HISTORY This is a 71-year-old white male well-known to [facility] was brought in under Salas act initiated by the police. According to the paperwork the patient is depressed and told the police that he had a gun and would like to shoot himself because he does not like the pain. This patient has a history of drinking and when he is drunk he says things that he does not even remember, now he does not even remember saying that to the police. He claimed that he lives in a housing authority but would like to go to an assisted living facility. He wants to quit drinking. He does not remember having a history of bipolar affective disorder, but does admit to alcohol abuse. He has been taking Celexa, trazodone, Librium. He has been in and out of the emergency room visits for voicing suicidal ideation. At the present time the patient denies any suicidal and/or homicidal ideation, intentions or plans. He wants to go home and maybe go to an assisted living facility, willing to take the medication and follow up as an outpatient with Raciel Snell. BACKGROUND HISTORY The patient was born in [place]. He has two half sisters and one half-brother. He was close to his parents. They both . His childhood was described as okay. He denied any physical, verbal or sexual abuse growing up. He did finish high school. Started to drink alcohol when he was about 17 or 18. 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 He has been disabled for 10 years. He has been living alone for several years. He has been six times and had three children, two sons and one daughter. 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 MENTAL STATUS EXAM This is a 71-year-old white male who looks about the same as his stated age, was alert, oriented x2, cooperative, casually dressed. His speech was slow without any evidence of loose associations or flight of ideas or pressured speech. His mood was described as feeling frustrated with having to live alone and with the pain. His affect was restricted. He denied any active and/or passive suicidal and/or homicidal ideation, intentions or plans. Denied any active auditory or visual hallucinations or any paranoid delusion at this time. He seems to be of low average intelligence with poor recent memory and concentration. His insight is fair and his judgment on hypothetical situation is okay. IMPRESSION Alcohol induced mood disorder. RECOMMENDATIONS At the present time the patient denies any suicidal and/or homicidal ideation, intentions or plan. Denies any auditory or visual hallucinations. His thoughts are organized. He is willing to follow up as an outpatient and abstain from any alcohol use and/or abuse. No behavior or management problem reported or exhibited here. In my opinion the patient does not meet the Salas ACT criteria so I will lift the Salas Act. The patient can be discharged and follow up as an outpatient. I thank you very much for allowing me to participate in the care of this patient. Sherrie FLANNERY /11:49 AM /3:37 PM
== END 2016-06-10 15:16 | disposition home or self-care (01) ==
LOC: NEPA 20:54
DX: F10.94 Alcohol use, unspecified with alcohol-induced mood disorder (principal); F17.210 Nicotine dependence, cigarettes, uncomplicated; J45.909 Unspecified asthma, uncomplicated; I10 Essential (primary) hypertension; J44.9 Chronic obstructive pulmonary disease, unspecified; Y90.6 Blood alcohol level of 120-199 mg/100 ml; Z89.512 Acquired absence of left leg below knee
CPT/HCPCS: 80053; 80307; 80320; 85025; 99285

== ENCOUNTER 2016-06-20 15:24 | Emergency (ER) | payer MEDICARE, OTHER ==
[~2016-06-20] VITALS: Ht 180.3 cm; Wt 61.4 kg
[2016-06-20 15:28] VITALS: BP 128/70; PULSE 78; RESP 16; TEMP 97.7; O2SAT 99
[2016-06-20] MEDS ORDERED: SODIUM CHLORIDE 0.9% FLUSH 5 ML FLUSH IVF PRN (16:00)
[2016-06-20 16:04] VITALS: RESP 19; O2SAT 100
--- NOTE | 2016-06-20 16:04 | PD ---
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 He states he needs help. Modifying Factors: None Associated Signs & Symptoms: Heavy drinking, not doing well at home, frequent falls, failure to thrive Risk Factors: Alcoholic PFSH Past Medical History Asthma: Yes Autoimmune Disease: No Blood Disorders: No Bipolar Disorder: Yes Anxiety: Yes Depression: Yes Heart Rhythm Problems: No Cancer: No Cardiovascular Problems: No High Cholesterol: No Chemotherapy: No Chest Pain: No Congestive Heart Failure: No COPD: Yes Cerebrovascular Accident: Yes Diabetes: No Diminished Hearing: No Endocrine: No Gastrointestinal Disorders: Yes GERD: Yes Genitourinary: No Hepatitis: No Hiatal Hernia: No Hypertension: Yes Immune Disorder: No Implanted Vascular Access Dvce: Yes Musculoskeletal: Yes (RHABDO) Neurologic: Yes (WEAKNESS LEFT SIDE) Psychiatric: Yes Reproductive: No Respiratory: Yes (COPD) Integumentary: No Immunizations Current: Yes Pancreatitis: No Radiation Therapy: No Seizures: No Sleep Apnea: No Thyroid Disease: No Past Surgical History Abdominal Surgery: No Appendectomy: No Body Medical Devices: ivc filter inplace, STENT IN LEG Genitourinary Surgery: No Gynecologic Surgery: No Oral Surgery: Yes Pacemaker: No Thoracic Surgery: Yes (2010 LEFT LOBE THORACOTOMY) Tonsillectomy: Yes Other Surgery: Yes (L-BTK amputation) Social History Alcohol Use: Yes (DAILY 1 BOTTLE WINE) Tobacco Use: Yes (/2 PPD) Substance Use: No Allergies-Medications (Allergen,Severity, Reaction): Coded Allergies: Tetanus Immune Globulin (Verified Allergy, Severe, SWELLING IN ARM, 06/20/16 ) Vancomycin (Verified Allergy, Severe, Rash, 06/20/16) Sulfa (Verified Allergy, Intermediate, Rash, 06/20/16) *MDRO Multi-Drug Resistant Organism (Verified Adverse Reaction, Unknown, MRSA, 06/20/16) 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 Reported Meds & Prescriptions Reported Meds & Active Scripts Active Vitamin B-1 (Thiamine HCl) 100 Mg Tab 100 Mg PO DAILY Carafate (Sucralfate) 1 Gm Tab 1 Gm PO QID Pantoprazole (Pantoprazole Sodium) 40 Mg Tab 40 Mg PO DAILY Folate (Folic Acid) 1 Mg Tab 1 Mg PO DAILY Digoxin 0.125 Mg Tab 0.125 Mg PO DAILY Celexa (Citalopram Hydrobromide) 20 Mg Tab 20 Mg PO DAILY Chlordiazepoxide (Chlordiazepoxide HCl) 25 Mg Cap 25 Mg PO TID PRN Ultram (Tramadol HCl) 50 Mg Tab 50 Mg PO Q6H PRN Hydrocodone-Acetaminophen 5-325 mg Tab 1 Tab PO Q6H PRN Trazodone (Trazodone HCl) 50 Mg Tab 100 Mg PO HS PRN Review of Systems Except as stated in HPI: all other systems reviewed are Neg Physical Exam Narrative GENERAL: Well-nourished, well-developed disheveled appearing elderly white male patient with alcohol on breath, awake, alert, oriented 3, status post left BKA. SKIN: Warm and dry. HEAD: Normocephalic. EYES: No scleral icterus. No injection or drainage. NECK: Supple, trachea midline. CARDIOVASCULAR: Regular rate and rhythm without murmurs, gallops, or rubs. RESPIRATORY: Breath sounds equal bilaterally. No accessory muscle use. GASTROINTESTINAL: Abdomen soft, non-tender, nondistended. MUSCULOSKELETAL: No cyanosis, or edema. BACK: Nontender without obvious deformity. No CVA tenderness. Data Data Last Documented VS Vital Signs Date Time Temp Pulse Resp B/P Pulse Ox O2 Delivery O2 Flow Rate FiO2 06/20/16 18:25 94 22 119/59 99 Room Air 06/20/16 15:28 97.7 Orders Electrocardiogram (06/20/16 15:51) Complete Blood Count With Diff (06/20/16 15:51) Comprehensive Metabolic Panel (06/20/16 15:51) Magnesium (Mg) (06/20/16 15:51) Ckmb (Isoenzyme) Profile (06/20/16 15:51) Troponin I (06/20/16 15:51) Act Partial Throm Time (Ptt) (06/20/16 15:51) Prothrombin Time / Inr (Pt) (06/20/16 15:51) Urinalysis - C+S If Indicated (06/20/16 15:51) Chest, Single Ap (06/20/16 15:51) Ecg Monitoring (06/20/16 15:51) Iv Access Insert/Monitor (06/20/16 15:51) Oximetry (06/20/16 15:51) Sodium Chloride 0.9% Flush (Ns Flush) (06/20/16 16:00) Digoxin (06/20/16 15:51) Alcohol (Ethanol) (06/20/16 15:59) Potassium Chloride Eff (K-Lyte Cl Eff) (06/20/16 18:00) Labs Laboratory Tests Test 06/20/16 06/20/16 16:25 17:15 White Blood Count 8.7 TH/MM3 Red Blood Count 3.89 MIL/MM3 Hemoglobin 13.7 GM/DL Hematocrit 39.3 % Mean Corpuscular Volume 101.0 FL Mean Corpuscular Hemoglobin 35.1 PG Mean Corpuscular Hemoglobin 34.8 % Concent Red Cell Distribution Width 14.4 % Platelet Count 206 TH/MM3 Mean Platelet Volume 8.5 FL Neutrophils (%) (Auto) 51.1 % Lymphocytes (%) (Auto) 36.4 % Monocytes (%) (Auto) 8.2 % Eosinophils (%) (Auto) 2.4 % Basophils (%) (Auto) 1.9 % Neutrophils # (Auto) 4.4 TH/MM3 Lymphocytes # (Auto) 3.2 TH/MM3 Monocytes # (Auto) 0.7 TH/MM3 Eosinophils # (Auto) 0.2 TH/MM3 Basophils # (Auto) 0.2 TH/MM3 CBC Comment DIFF FINAL Differential Comment Prothrombin Time 10.5 SEC Prothromb Time International 1.0 RATIO Ratio Activated Partial 30.5 SEC Thromboplast Time Sodium Level 139 MEQ/L Potassium Level 3.0 MEQ/L Chloride Level 103 MEQ/L Carbon Dioxide Level 26.3 MEQ/L Anion Gap 10 MEQ/L Blood Urea Nitrogen 4 MG/DL Creatinine 1.06 MG/DL Estimat Glomerular Filtration 69 ML/MIN Rate Random Glucose 77 MG/DL Calcium Level 7.9 MG/DL Magnesium Level 1.9 MG/DL Total Bilirubin 1.0 MG/DL Aspartate Amino Transf 14 U/L (AST/SGOT) Alanine Aminotransferase 13 U/L (ALT/SGPT) Alkaline Phosphatase 194 U/L Total Creatine Kinase 43 U/L Troponin I 0.04 NG/ML Total Protein 5.9 GM/DL Albumin 2.6 GM/DL Digoxin Level 1.0 NG/ML Ethyl Alcohol Level 182 MG/DL Urine Color YELLOW Urine Turbidity CLEAR Urine pH 5.5 Urine Specific [place] 1.010 Urine Protein NEG mg/dL Urine Glucose (UA) NEG mg/dL Urine Ketones NEG mg/dL Urine Occult Blood NEG Urine Nitrite NEG Urine Bilirubin NEG Urine Urobilinogen LESS THAN 2.0 MG/DL Urine Leukocyte Esterase NEG Urine RBC 1 /hpf Urine WBC 1 /hpf Urine Squamous Epithelial 1 /hpf Cells Urine Renal Epithelial Cells <1 /hpf Urine Bacteria RARE /hpf Urine Hyaline Casts 7 /lpf Urine Mucus FEW /lpf Microscopic Urinalysis Comment CULT NOT INDICATED MDM Medical Decision Making Medical Screen Exam Complete: Yes Emergency Medical Condition: Yes Medical Record Reviewed: Yes Interpretation(s) Laboratory Tests Test 06/20/16 06/20/16 16:25 17:15 Red Blood Count 3.89 MIL/MM3 (4.50-5.90) Mean Corpuscular Volume 101.0 FL (80.0-100.0) Mean Corpuscular Hemoglobin 35.1 PG (27.0-34.0) Monocytes (%) (Auto) 8.2 % (0.0-8.0) Activated Partial 30.5 SEC Thromboplast Time (24.3-30.1) Potassium Level 3.0 MEQ/L (3.5-5.1) Blood Urea Nitrogen 4 MG/DL (7-18) Estimat Glomerular Filtration 69 ML/MIN (>89) Rate Calcium Level 7.9 MG/DL (8.5-10.1) Aspartate Amino Transf 14 U/L (15-37) (AST/SGOT) Alkaline Phosphatase 194 U/L (45-117) Total Protein 5.9 GM/DL (6.4-8.2) Albumin 2.6 GM/DL (3.4-5.0) Ethyl Alcohol Level 182 MG/DL (0-5) Urine Bacteria RARE /hpf (NONE) Urine Mucus FEW /lpf (OCC) Differential Diagnosis Failure to thriverule out dehydration versus metabolic issues versus sepsis Narrative Course Patient appears to be a chronic alcoholic, appears to have trouble taking care of herself at home. His lab work shows hypokalemia but is otherwise not significant for any significant dehydration or sepsis. Patient was given by mouth potassium in the ER and as a prescription. Patient will likely need further home health care to help care for self. At this point, my plan would be to release the patient with follow-up to primary care physician and alf help at home. Case was discussed with case management to help arrangement. Return as needed for new issues. The plan was discussed with the patient and he states understanding. He will need to follow-up with [facility] for further issues with alcohol. Diagnosis Primary Impression: Alcohol intoxication Additional Impressions: Weakness HYPOKALEMIA Referrals: [facility] Pt SpecificInfo: Prescription(s) given Scripts Potassium Chloride ER (K-Tab)20 Meq Tab20 Meq PO BID #14 TAB Ref 0 Prov:Ashlee Juarez MD 06/20/16 Disposition: 01 DISCHARGE HOME Condition: Stable Ashlee Juarez MD Jun 20, 2016 16:04
--- NOTE | 2016-06-20 16:37 | RADRPT ---
EXAM DATE/TIME: 06/20/2016 16:06 [facility] COMPARISON: CHEST SINGLE AP, May 13, 2016, 18:39. INDICATIONS : Heart palpitations. MEDICAL HISTORY : Hypertension. Chronic obstructive pulmonary disease. Asthma. SURGICAL HISTORY : Tonsillectomy. Lobectomy. Stent in leg. ENCOUNTER: Initial ACUITY: 1 day PAIN SCORE: 0/10 LOCATION: chest FINDINGS: A single view of the chest demonstrates the lungs to be symmetrically aerated without evidence of mas s, infiltrate or effusion. Granuloma is present in the left base. The cardiomediastinal contours are unremarkable. Osseous structures are intact. CONCLUSION: No acute disease. Giorgio Goodwin MD FACR on June 20, 2016 at 16:35 Board Certified Radiologist. This report was verified electronically.
[2016-06-20 16:55] LABS: AUTOMATED NEUTROPHIL # 4.4 TH/MM3 (1.8-7.7); BASOPHIL # 0.2 TH/MM3 (0-0.2); BASOPHIL % 1.9 % (0.0-2.0); EOSINOPHIL # 0.2 TH/MM3 (0-0.4); EOSINOPHIL % 2.4 % (0.0-4.0); HEMATOCRIT 39.3 % (39.0-51.0); HEMO FLAGS DIFF FINAL; LYMPH % 36.4 % (9.0-44.0); LYMPHOCYTE # 3.2 TH/MM3 (1.0-4.8); MEAN CORPUSCULAR HEMOGLOBIN 35.1 PG (27.0-34.0); MEAN CORPUSCULAR HGB CONC 34.8 % (32.0-36.0); MONO % 8.2 % (0.0-8.0); NEUT % 51.1 % (16.0-70.0); PLATELET COUNT 206 TH/MM3 (150-450); RED BLOOD COUNT 3.89 MIL/MM3 (4.50-5.90); RED CELL DISTRIBUTION WIDTH 14.4 % (11.6-17.2); WHITE BLOOD COUNT 8.7 TH/MM3 (4.0-11.0)
[2016-06-20 17:04] LABS: APTT (PATIENT) 30.5 SEC (24.3-30.1); PROTHROMBIN TIME - PATIENT 10.5 SEC (9.8-11.6)
[2016-06-20 17:25] LABS: ANION GAP 10 MEQ/L (5-15); AST (GOT) 14 U/L (15-37); BICARBONATE 26.3 MEQ/L (21.0-32.0); BLOOD UREA NITROGEN 4 MG/DL (7-18); CHLORIDE 103 MEQ/L (98-107); GLOMERULAR FILTRATION RATE 69 ML/MIN (>89); MAGNESIUM 1.9 MG/DL (1.5-2.5); SODIUM (NA) 139 MEQ/L (136-145)
[2016-06-20 17:40] LABS: ALKALINE PHOSPHATASE 194 U/L (45-117); ALT (GPT) 13 U/L (12-78)
[2016-06-20 17:44] LABS: CREATINE KINASE 43 U/L (39-308)
[2016-06-20] MEDS ORDERED: POTASSIUM CHLORIDE 25 MEQ EFFERVESCENT TAB PO ONE (18:00)
[2016-06-20 18:06] LABS: BACTERIA, URINE RARE /hpf; BLOOD, URINE NEG (NEG); GLUCOSE,URINE NEG (NEG); HYALINE CAST, URINE 7 /lpf (RARE); KETONE, URINE NEG (NEG); MUCUS URINE FEW /lpf (OCC); NITRITE,URINE NEG (NEG); PH, URINE 5.5 (5.0-8.5); RENAL EPITHELIAL CELLS <1 /hpf; SQUAMOUS EPITHELIAL CELL URINE 1 /hpf (0-5); URINE COLOR YELLOW (YELLW/STRAW)
[2016-06-20 18:07] LABS: COMMENT (UR) CULT NOT INDICATED; CULTURE IF INDICATED CULT NOT INDICATED
[2016-06-20 18:25] VITALS: BP 119/59; PULSE 94; RESP 22; O2SAT 99
--- NOTE | 2016-06-20 18:29 | HHI.FF ---
Face to Face Verification Diagnosis: (1) Alcoholism (2) History of left below knee amputation (3) Limited mobility (4) Weakness Physical Therapy Order: Evaluate and Treat, Improve ambulation, Strength and gait training Occupational Therapy Order: Evaluate and Treat, Improve ADL, Gross motor coordination Home Health Nursing Order: Nursing assessment with vital signs Home Health Aide Order: To Assist In: Bathing and personal care, fish farmer and meal prep Enamel Burner Order: To Evaluate: Living conditions/environment, Support services Order: To Provide: Long range planning, Community services I have seen patient Jah Knapp on 06/20/16. My clinical findings support the need for the requested home health care services because: Ltd mobility - disease progression Deconditioned w/ increased weakness Med compliance is questionable Limited ability to care for self High risk of falls I certify that my clinical findings support that this patient is homebound because: Unsteady gait/balance Ashlee Juarez MD Jun 20, 2016 18:28
[2016-06-20] MEDS ORDERED: POTA1TAB4 PO (18:31)
--- NOTE | 2016-06-22 07:04 | EKG ---
Date Performed: 06/20/2016 Time Performed: 16:07:49 PTAGE: 71 years EKG: Sinus rhythm LOW QRS VOLTAGE IN EXTREMITY LEADS MODERATE ST DEPRESSION ABNORMAL ECG PREVIOUS TRACING : 06/20/2016 16.05 Compared to prior tracing no significant change DOCTOR: Luis Alberto Ceron Interpretating Date/Time 06/22/2016 07:01:44
== END 2016-06-20 19:36 | disposition home or self-care (01) ==
LOC: NEPC 15:24
DX: F10.129 Alcohol abuse with intoxication, unspecified (principal); R53.1 Weakness; E87.6 Hypokalemia; I10 Essential (primary) hypertension; F17.200 Nicotine dependence, unspecified, uncomplicated; R94.31 Abnormal electrocardiogram [ECG] [EKG]; J44.9 Chronic obstructive pulmonary disease, unspecified; J45.909 Unspecified asthma, uncomplicated; Y90.6 Blood alcohol level of 120-199 mg/100 ml; Z89.512 Acquired absence of left leg below knee
CPT/HCPCS: 71010; 80053; 80162; 80320; 81001; 82550; 83735; 84484; 85025; 85610; 85730; 93005

== ENCOUNTER 2016-06-21 16:30 | Inpatient (IN) | payer MEDICARE, OTHER ==
[~2016-06-21] VITALS: Ht 180.3 cm; Wt 55.0 kg
[~2016-06-21 16:30] MED LIST changes: +POTA1TAB4 PO
[2016-06-21 16:37] VITALS: BP 136/58; PULSE 89; RESP 24; TEMP 97.6; O2SAT 95
[2016-06-21 22:34] VITALS: BP 126/60; PULSE 87; RESP 14; TEMP 97.3; O2SAT 99
[2016-06-22] VITALS (11 sets, daily range): BP systolic 94–166; BP diastolic 58–74; PULSE 65–100; RESP 16–22; TEMP 97.4–98.3; O2SAT 94–100
[2016-06-22] MEDS ORDERED: ASPIRIN 81 MG CHEW TAB CHEW ONE (02:00)
[2016-06-22] MEDS ORDERED: SODIUM CHLORIDE 0.9% FLUSH 5 ML FLUSH IVF PRN (02:00)
[2016-06-22 02:06] LABS: BASOPHIL # 0.1 TH/MM3 (0-0.2); BASOPHIL % 0.7 % (0.0-2.0); EOSINOPHIL # 0.2 TH/MM3 (0-0.4); EOSINOPHIL % 1.6 % (0.0-4.0); HEMATOCRIT 40.9 % (39.0-51.0); HEMO FLAGS DIFF FINAL; LYMPH % 28.2 % (9.0-44.0); LYMPHOCYTE # 2.7 TH/MM3 (1.0-4.8); MEAN CELL VOLUME 100.4 FL (80.0-100.0); MEAN CORPUSCULAR HGB CONC 34.9 % (32.0-36.0); MONO % 7.5 % (0.0-8.0); PLATELET COUNT 245 TH/MM3 (150-450); RED BLOOD COUNT 4.07 MIL/MM3 (4.50-5.90); RED CELL DISTRIBUTION WIDTH 14.4 % (11.6-17.2); WHITE BLOOD COUNT 9.7 TH/MM3 (4.0-11.0)
[2016-06-22 02:23] LABS: ALT (GPT) 14 U/L (12-78); ANION GAP 9 MEQ/L (5-15); AST (GOT) 18 U/L (15-37); BICARBONATE 25.7 MEQ/L (21.0-32.0); BLOOD UREA NITROGEN 8 MG/DL (7-18); CHLORIDE 104 MEQ/L (98-107); GLOMERULAR FILTRATION RATE 50 ML/MIN (>89); POTASSIUM 3.6 MEQ/L (3.5-5.1); SODIUM (NA) 139 MEQ/L (136-145)
[2016-06-22 02:25] LABS: ALKALINE PHOSPHATASE 208 U/L (45-117); TOTAL BILIRUBIN ADULT 1.1 MG/DL (0.2-1.0)
--- NOTE | 2016-06-22 02:27 | RADRPT ---
EXAM DATE/TIME: 06/22/2016 01:52 [place] COMPARISON: CHEST SINGLE AP, June 20, 2016, 16:06. INDICATIONS : Shortness of breath. MEDICAL HISTORY : Hypertension. Chronic obstructive pulmonary disease. Asthma. SURGICAL HISTORY : Lobectomy. ENCOUNTER: Initial ACUITY: 1 day PAIN SCORE: 0/10 LOCATION: Bilateral chest FINDINGS: 2 AP views of the chest demonstrate a normal-sized cardiac silhouette with calcification of the aorta . No pleural effusion, airspace consolidation, or pneumothorax is visualized. Bones and soft tissues demonstrate no acute finding. There is a stable old right mid clavicle fracture. CONCLUSION: Stable chest x-ray. No acute cardiopulmonary abnormality is identified. Nate Esquivel MD on June 22, 2016 at 2:24 Board Certified Radiologist. This report was verified electronically.
[2016-06-22 02:40] LABS: APTT (PATIENT) 29.2 SEC (24.3-30.1); INTERNATIONAL NORMALIZED RATIO 0.9 RATIO; PROTHROMBIN TIME - PATIENT 10.4 SEC (9.8-11.6)
--- NOTE | 2016-06-22 02:45 | PD ---
HPI Chief Complaint: General Weakness Time Seen by Provider: 01:53 Travel History International Travel<30 days: No Contact w/Intl Traveler<30days: No Traveled to known affect area: No History of Present Illness HPI 71-year-old male came to the emergency room with history of generalized weakness with chest pain and shortness of breath that's been going on for past 1 week. Patient is homeless and seems to be in significant distress. He is a chronic smoker. Patient points his pain to the left side of his chest and says it radiates to both arms. No history of coronary artery disease. He looks significantly disheveled and poor skin hygiene. Patient is not on any medications and does not have any regular healthcare. Patient describes the pain as a pressure sensation of 5 out of 10. PFSH Past Medical History Narrative Medical List of his past medical history as reviewed from the nursing note. Asthma: Yes Autoimmune Disease: No Blood Disorders: No Bipolar Disorder: Yes Anxiety: Yes Depression: Yes Heart Rhythm Problems: No Cancer: No Cardiovascular Problems: No High Cholesterol: No Chemotherapy: No Chest Pain: No Congestive Heart Failure: No COPD: Yes Cerebrovascular Accident: Yes Diabetes: No Diminished Hearing: No Endocrine: No Gastrointestinal Disorders: Yes GERD: Yes Genitourinary: No Hepatitis: No Hiatal Hernia: No Hypertension: Yes Immune Disorder: No Implanted Vascular Access Dvce: Yes Medical other: Yes (GERD) Musculoskeletal: Yes (RHABDO) Neurologic: Yes (WEAKNESS LEFT SIDE) Psychiatric: Yes Reproductive: No Respiratory: Yes (COPD) Integumentary: No Immunizations Current: Yes Pancreatitis: No Radiation Therapy: No Seizures: No Sleep Apnea: No Thyroid Disease: No Tetanus Vaccination: < 5 Years Influenza Vaccination: Yes Past Surgical History Abdominal Surgery: No Appendectomy: No Body Medical Devices: ivc filter inplace, STENT IN LEG Genitourinary Surgery: No Gynecologic Surgery: No Oral Surgery: Yes Pacemaker: No Thoracic Surgery: Yes (2010 LEFT LOBE THORACOTOMY) Tonsillectomy: Yes Other Surgery: Yes (L-BTK amputation) Social History Alcohol Use: Yes (DAILY 1 BOTTLE WINE) Tobacco Use: Yes (1/2 PPD) Substance Use: No Allergies-Medications (Allergen,Severity, Reaction): Coded Allergies: Tetanus Immune Globulin (Verified Allergy, Severe, SWELLING IN ARM, 06/22/16 ) Vancomycin (Verified Allergy, Severe, Rash, 06/22/16) Sulfa (Verified Allergy, Intermediate, Rash, 06/22/16) *MDRO Multi-Drug Resistant Organism (Verified Adverse Reaction, Unknown, MRSA, 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 Reported Meds & Prescriptions Reported Meds & Active Scripts Active K-Tab (Potassium Chloride) 20 Meq Tab 20 Meq PO BID Vitamin B-1 (Thiamine HCl) 100 Mg Tab 100 Mg PO DAILY Carafate (Sucralfate) 1 Gm Tab 1 Gm PO QID Pantoprazole (Pantoprazole Sodium) 40 Mg Tab 40 Mg PO DAILY Folate (Folic Acid) 1 Mg Tab 1 Mg PO DAILY Digoxin 0.125 Mg Tab 0.125 Mg PO DAILY Celexa (Citalopram Hydrobromide) 20 Mg Tab 20 Mg PO DAILY Chlordiazepoxide (Chlordiazepoxide HCl) 25 Mg Cap 25 Mg PO TID PRN Ultram (Tramadol HCl) 50 Mg Tab 50 Mg PO Q6H PRN Hydrocodone-Acetaminophen 5-325 mg Tab 1 Tab PO Q6H PRN Trazodone (Trazodone HCl) 50 Mg Tab 100 Mg PO HS PRN Narrative Medication List of his home medications reviewed from the nursing note. Review of Systems Except as stated in HPI: all other systems reviewed are Neg Physical Exam Narrative GENERAL: Awake, alert, significant distress, anxious, emaciated, disheveled SKIN: Warm and dry. Disheveled and poor skin hygiene HEAD: Atraumatic. Normocephalic. EYES: Pupils equal and round. No scleral icterus. No injection or drainage. ENT: No nasal bleeding or discharge. Mucous membranes pink and moist. NECK: Trachea midline. No JVD. CARDIOVASCULAR: Regular rate and rhythm. No murmur appreciated. RESPIRATORY: No accessory muscle use. Clear to auscultation. Breath sounds equal bilaterally. GASTROINTESTINAL: Abdomen soft, non-tender, nondistended. Hepatic and splenic margins not palpable. MUSCULOSKELETAL: No obvious deformities. No clubbing. No cyanosis. No edema. Left BKA. NEUROLOGICAL: Awake and alert. No obvious cranial nerve deficits. 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 Normal speech. PSYCHIATRIC: Appropriate mood and affect; insight and judgment normal. Data Data Last Documented VS Vital Signs Date Time Temp Pulse Resp B/P Pulse Ox O2 Delivery O2 Flow Rate FiO2 2/3/17 04:04 99 Room Air 06/22/16 04:04 93 18 124/58 06/21/16 22:34 97.3 Orders Electrocardiogram (06/22/16 01:08) Complete Blood Count With Diff (06/22/16 01:08) Comprehensive Metabolic Panel (06/22/16 01:08) Iv Access Insert/Monitor (06/22/16 01:08) Ckmb (Isoenzyme) Profile (06/22/16 01:55) Magnesium (Mg) (06/22/16 01:55) Prothrombin Time / Inr (Pt) (06/22/16 01:55) Act Partial Throm Time (Ptt) (06/22/16 01:55) Troponin I (06/22/16 01:55) Chest, Single Ap (06/22/16 01:55) Ecg Monitoring (06/22/16 01:55) Bilateral Bp Monitoring (06/22/16 01:55) Oximetry (06/22/16 01:55) Oxygen Administration (06/22/16 01:55) Sodium Chloride 0.9% Flush (Ns Flush) (06/22/16 02:00) Aspirin Chew (Aspirin Chew) (06/22/16 02:00) Heparin Inj (Heparin Inj) (06/22/16 03:15) Heparin-D5w Inj (Heparin-D5w Inj) (06/22/16 03:15) Act Partial Throm Time (Ptt) (06/22/16 10:06) Heparin Infusion KONSTANTIN.Q1H (06/22/16 03:31) Heparin Inj (Heparin Inj) (06/22/16 03:45) Heparin-D5w Inj (Heparin-D5w Inj) (06/22/16 03:45) Admit Order (Ed Use Only) (06/22/16 04:11) Labs Laboratory Tests Test 06/22/16 06/22/16 01:42 02:00 White Blood Count 9.7 TH/MM3 Red Blood Count 4.07 MIL/MM3 Hemoglobin 14.3 GM/DL Hematocrit 40.9 % Mean Corpuscular Volume 100.4 FL Mean Corpuscular Hemoglobin 35.0 PG Mean Corpuscular Hemoglobin 34.9 % Concent Red Cell Distribution Width 14.4 % Platelet Count 245 TH/MM3 Mean Platelet Volume 8.9 FL Neutrophils (%) (Auto) 62.0 % Lymphocytes (%) (Auto) 28.2 % Monocytes (%) (Auto) 7.5 % Eosinophils (%) (Auto) 1.6 % Basophils (%) (Auto) 0.7 % Neutrophils # (Auto) 6.0 TH/MM3 Lymphocytes # (Auto) 2.7 TH/MM3 Monocytes # (Auto) 0.7 TH/MM3 Eosinophils # (Auto) 0.2 TH/MM3 Basophils # (Auto) 0.1 TH/MM3 CBC Comment DIFF FINAL Differential Comment Sodium Level 139 MEQ/L Potassium Level 3.6 MEQ/L Chloride Level 104 MEQ/L Carbon Dioxide Level 25.7 MEQ/L Anion Gap 9 MEQ/L Blood Urea Nitrogen 8 MG/DL Creatinine 1.41 MG/DL Estimat Glomerular Filtration 50 ML/MIN Rate Random Glucose 81 MG/DL Calcium Level 8.4 MG/DL Total Bilirubin 1.1 MG/DL Aspartate Amino Transf 18 U/L (AST/SGOT) Alanine Aminotransferase 14 U/L (ALT/SGPT) Alkaline Phosphatase 208 U/L Total Protein 6.8 GM/DL Albumin 3.0 GM/DL Prothrombin Time 10.4 SEC Prothromb Time International 0.9 RATIO Ratio Activated Partial 29.2 SEC Thromboplast Time Magnesium Level 1.7 MG/DL Total Creatine Kinase 42 U/L Troponin I 0.06 NG/ML MDM Medical Decision Making Medical Screen Exam Complete: Yes Emergency Medical Condition: Yes Medical Record Reviewed: Yes Interpretation(s) Twelve-lead EKG was reviewed by me. Normal sinus rhythm, left axis deviation, lateral ST depression which is new. Heart rate of 96 bpm. Differential Diagnosis Non-STEMI, congestive heart failure, ACS Narrative Course 3:17 AM blood test results of back and troponin is elevated. Patient has been started on heparin bolus and drip. Awaiting for the hospitalist to call back. Patient will need to be admitted to the [facility]. Critical Care Narrative Aggregate critical care time was 30 minutes. Time to perform other separately billable procedures was not included in the critical care time. My time did not include minutes spent treating any other patients simultaneously or on activities that did not directly contribute to the patient's treatment. The services I provided to this patient were to treat and/or prevent clinically significant deterioration that could result in: Non-STEMI, heparin bolus and drip I provided critical care services requiring my management, as noted below: Chart data review, documentation time, medication orders and management, vital sign assessments/reviewing monitor data, ordering and reviewing lab tests, ordering and interpreting/reviewing x-rays and diagnostic studies, care of the patient and discussion of the patient with the admitting physicians. Procedures EKG Prior to Arrival: Yes Diagnosis Primary Impression: Non-STEMI (non-ST elevated myocardial infarction) Admitting Information Admitting Physician Requests: Admit Jamil Gonzáles MD Jun 22, 2016 02:45
[2016-06-22 02:48] LABS: MAGNESIUM 1.7 MG/DL (1.5-2.5)
[2016-06-22] MEDS ORDERED: HEPARIN SODIUM - IV 10,000 UNITS/10 ML VIAL IV ONE ×2 (03:15→03:45)
[2016-06-22] MEDS ORDERED: HEPARIN-D5W INJ 250 ML IV SCH ×2 (03:15→03:45)
[2016-06-22] MEDS ORDERED: ACETAMINOPHEN 325 MG TAB PO PRN (05:00)
[2016-06-22] MEDS ORDERED: NALOXONE HCL 0.4 MG/ML AMP IV PRN (05:00)
[2016-06-22] MEDS ORDERED: SODIUM CHLORIDE 0.9% FLUSH 5 ML FLUSH FLUSH PRN (05:00)
[2016-06-22] MEDS ORDERED: ONDANSETRON HCL 4 MG/2 ML VIAL IVP PRN (05:00)
[2016-06-22] MEDS ORDERED: MORPHINE SULFATE 4 MG/ML INJ IV PRN ×2 (05:00)
[2016-06-22] MEDS: SODIUM CHLOR 0.9% 1000 ML INJ 1,000 ML IV SCH ×3 (08:30→20:48)
[2016-06-22] MEDS ORDERED: SODIUM CHLOR 0.9% 250 ML INJ 250 ML IV ONE (08:30)
--- NOTE | 2016-06-22 08:50 | HHI.HP ---
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 SKIN: No rashes, ecchymoses or lesions. Cool and dry. HEAD: Atraumatic. Normocephalic. No temporal or scalp tenderness. EYES: Pupils equal round and reactive. Extraocular motions intact. No scleral icterus. No injection or drainage. ENT: Nose without bleeding, purulent drainage or septal hematoma. Throat without erythema, tonsillar hypertrophy or exudate. Uvula midline. Airway patent. NECK: Trachea midline. No JVD or lymphadenopathy. Supple, nontender, no meningeal signs. CARDIOVASCULAR: Regular rate and rhythm without murmurs, gallops, or rubs. RESPIRATORY: Clear to auscultation. Breath sounds equal bilaterally. No wheezes , rales, or rhonchi. GASTROINTESTINAL: Abdomen soft, non-tender, nondistended. No hepato-splenomegaly , or palpable masses. No guarding. MUSCULOSKELETAL: Extremities without clubbing, cyanosis, or edema. No joint tenderness, effusion, or edema noted. No calf tenderness. Negative Homans sign bilaterally. NEUROLOGICAL: Awake and alert. Cranial nerves II through XII intact. Motor and sensory grossly within normal limits. Five out of 5 muscle strength in all muscle groups. Normal speech. Laboratory Laboratory Tests Test 06/22/16 06/22/16 06/22/16 01:42 02:00 07:02 White Blood Count 9.7 Red Blood Count 4.07 Hemoglobin 14.3 Hematocrit 40.9 Mean Corpuscular Volume 100.4 Mean Corpuscular Hemoglobin 35.0 Mean Corpuscular Hemoglobin 34.9 Concent Red Cell Distribution Width 14.4 Platelet Count 245 Mean Platelet Volume 8.9 Neutrophils (%) (Auto) 62.0 Lymphocytes (%) (Auto) 28.2 Monocytes (%) (Auto) 7.5 Eosinophils (%) (Auto) 1.6 Basophils (%) (Auto) 0.7 Neutrophils # (Auto) 6.0 Lymphocytes # (Auto) 2.7 Monocytes # (Auto) 0.7 Eosinophils # (Auto) 0.2 Basophils # (Auto) 0.1 CBC Comment DIFF FINAL Differential Comment Sodium Level 139 Potassium Level 3.6 Chloride Level 104 Carbon Dioxide Level 25.7 Anion Gap 9 Blood Urea Nitrogen 8 Creatinine 1.41 Estimat Glomerular Filtration 50 Rate Random Glucose 81 Calcium Level 8.4 Total Bilirubin 1.1 Aspartate Amino Transf 18 (AST/SGOT) Alanine Aminotransferase 14 (ALT/SGPT) Alkaline Phosphatase 208 Total Protein 6.8 Albumin 3.0 Prothrombin Time 10.4 Prothromb Time International 0.9 Ratio Activated Partial 29.2 Thromboplast Time Magnesium Level 1.7 Total Creatine Kinase 42 Troponin I 0.06 0.06 Result Diagram: 06/22/1614106/22/16141 Assessment and Plan Problem List: (1) Weakness (2) Alcoholism Physician Certification Order for Inpatient Services The services are ordered in accordance with Medicare regulations or non- Medicare payer requirements, as applicable. In the case of services not specified as inpatient-only, they are appropriately provided as inpatient services in accordance with the 2-midnight benchmark. days is the estimated time the patient will need to remain in the hospital, assuming treatment plan goals are met and no additional complications. June Allison Jun 22, 2016 08:50
[2016-06-22 08:55] LABS: HDL CHOLESTEROL 79.7 MG/DL (40.0-60.0)
--- NOTE | 2016-06-22 08:55 | HHI.HP ---
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 Patient presented to the emergency room with complaint of generalized weakness, shortness of breath, and chest pain for one week. Patient indicates he lives in an apartment and has been very weak and not able to take care of himself. He denied any actual chest pain to me, indicates that he feels very weak and he has tingling from his hands that go up to his shoulders, chest only hurts if you press on it but no actual discomfort. He does have COPD, has chronic cough with some sputum that is green. Denies any fever or chills. Complains of diffuse abdominal pain, however during examination no pain was elicited. Patient indicates he hasn't been eating right and has been loosing weight. He drinks 1 bottle of wine daily, last drink was 3 days ago. He is noted tremulous. In the emergency room, patient was evaluated. CBC was remarkable for elevated MCV of 100.4. BMP was significant for elevated creatinine 1.41, alkaline phosphatase 208. Troponin 2 sets 0.06. EKG did not show any acute ST segment changes. Patient was started on a heparin drip and aspirin was given. Patient denies any history of cardiovascular disease. Patient has been evaluated by cardiology, the plan is for patient to undergo stress test today. Patient is admitted for further evaluation and treatment. (June Allison) Review of Systems ROS Limitations: Poor Historian Constitutional: COMPLAINS OF: Weight loss, Change in appetite Respiratory: COMPLAINS OF: Cough, Sputum production, Shortness of breath Neurologic: COMPLAINS OF: Paresthesias (June Allison) Past Family Social History Past Medical History 1. Hypertension. 2. Hyperlipidemia. 3. Peripheral arterial disease. 4. COPD 5. History of lung cancer 6. History of left foot osteomyelitis/gangrene. 7. Peripheral neuropathy 8. Prior history of C diff. 9. Chronic urinary incontinence. Past Surgical History 1. Left lower extremity balloon angioplasty, atherectomy with stenting of left SFA in 2011. 2. Left transmetatarsal amputation with skin graft done in October 2011. 3. Debridement of left lower extremity in November of 2011. 4. In June 2012, he had repeat left lower extremity angioplasty. 5. In August 2012, the patient underwent left below-knee amputation. 6. Prior history of tonsillectomy. 7. Left lower lobe resection for cancer. 8. 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 Reported Medications Reported Meds & Active Scripts Active K-Tab (Potassium Chloride) 20 Meq Tab 20 Meq PO BID Vitamin B-1 (Thiamine HCl) 100 Mg Tab 100 Mg PO DAILY Carafate (Sucralfate) 1 Gm Tab 1 Gm PO QID Pantoprazole (Pantoprazole Sodium) 40 Mg Tab 40 Mg PO DAILY Folate (Folic Acid) 1 Mg Tab 1 Mg PO DAILY Digoxin 0.125 Mg Tab 0.125 Mg PO DAILY Celexa (Citalopram Hydrobromide) 20 Mg Tab 20 Mg PO DAILY Chlordiazepoxide (Chlordiazepoxide HCl) 25 Mg Cap 25 Mg PO TID PRN Ultram (Tramadol HCl) 50 Mg Tab 50 Mg PO Q6H PRN Hydrocodone-Acetaminophen 5-325 mg Tab 1 Tab PO Q6H PRN Trazodone (Trazodone HCl) 50 Mg Tab 100 Mg PO HS PRN (June Allison) Allergies: Coded Allergies: Tetanus Immune Globulin (Verified Allergy, Severe, SWELLING IN ARM, 06/22/16 ) Vancomycin (Verified Allergy, Severe, Rash, 06/22/16) Sulfa (Verified Allergy, Intermediate, Rash, 06/22/16) *MDRO Multi-Drug Resistant Organism (Verified Adverse Reaction, Unknown, MRSA, 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) 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 Ordered Medications Inpatient Medications Acetaminophen (Tylenol) 650 mg Q4H PRN PO TEMP > 100.4; Start 06/22/16 at 05:00 Aspirin (Aspirin Chew) 162 mg ONCE ONCE CHEW Last administered on 06/22/16t 03: 10; Start 06/22/16 at 02:00; Stop 06/22/16 at 02:01; Status DC Aspirin (Aspirin) 325 mg DAILY PO ; Start 06/23/16 at 09:00 Heparin Sodium (Porcine) (Heparin Inj) 5,000 units ONCE ONCE IV ; Start at 03:15; Stop 06/22/16 at 03:34; Status DC Heparin Sodium (Porcine) 4400 units 4,400 units ONCE ONCE IV Last administered on 06/22/16t 04:03; Start 06/22/16 at 03:45; Stop 06/22/16 at 03:46; Status DC Heparin Sodium/ Dextrose (Heparin-D5W Inj) 250 ml @ 0 mls/hr TITRATE IV ; Start 06/22/16 at 03:45 IV Flush (NS Flush) 2 ml BID FLUSH ; Start 06/22/16 at 09:00 Morphine Sulfate (Morphine Inj) 4 mg Q3H PRN IV Pain 6-10;if unable to take PO ; Start 06/22/16 at 05:00 Naloxone HCl 0.4 mg 0.4 mg UNSCH PRN IV SEE LABEL COMMENTS; Start 06/22/16 at 05 :00 Ondansetron HCl (Zofran Inj) 4 mg Q6H PRN IVP NAUSEA OR VOMITING; Start at 05:00 Sodium Chloride (NS 1000 ml Inj) 1,000 ml @ 100 mls/hr Q10H IV ; Start 06/22/16 at 08:30 Family History Both his parents are . Father at the age of 39 from drinking. Mother around 70 years old. She had breast cancer. His three years ago from colon cancer. Social History Patient lives alone, states that he needs help and wants to go live at a correction. Drinks alcohol daily, approximately 1 bottle of wine a day, last drink was 3 days ago. Smokes 1 pack a day every 3 days for many years. No illegal drug use. Patient uses prosthesis, uses wheelchair. Has grown children who live out of state. (June Allison) Physical Exam Vital Signs Vital Signs Date Time Temp Pulse Resp B/P Pulse Ox O2 Delivery O2 Flow Rate FiO2 06/22/16 08:02 99 21 06/22/16 07:00 90 20 142/65 99 Room Air 06/22/16 06:00 69 16 166/74 99 06/22/16 05:00 81 16 152/68 98 Room Air 06/22/16 04:04 99 Room Air 06/22/16 04:04 93 18 124/58 99 Room Air 06/21/16 22:34 97.3 87 14 126/60 99 Room Air 06/21/16 16:37 97.6 89 24 136/58 95 Room Air Physical Exam GENERAL: This is a malnourished, unkept elderly male. Tremulous SKIN: Skin is dry and flaky. HEAD: Atraumatic. Normocephalic. No temporal or scalp tenderness. EYES: Pupils equal round and reactive. Extraocular motions intact. No scleral icterus. No injection or drainage. ENT: Nose without bleeding, purulent drainage or septal hematoma. Throat without erythema, tonsillar hypertrophy or exudate. Uvula midline. Airway patent. NECK: Trachea midline. No JVD or lymphadenopathy. Supple, nontender, no meningeal signs. CARDIOVASCULAR: Regular rate and rhythm without murmurs, gallops, or rubs. RESPIRATORY: Essentially clear, diminished at bases. Has a cough, nonproductive. GASTROINTESTINAL: Abdomen soft, non-tender, nondistended. No hepato-splenomegaly , or palpable masses. No guarding. MUSCULOSKELETAL: Left BKA. Chronic deformity left hand from previous TAB 1. No other joint abnormality. NEUROLOGICAL: Awake, alert oriented 3. No focal deficit. Patient is tremulous. Able to lift both arms, complaints of pain with movement. Following commands. Laboratory Laboratory Tests Test 06/22/16 06/22/16 06/22/16 01:42 02:00 07:02 White Blood Count 9.7 Red Blood Count 4.07 Hemoglobin 14.3 Hematocrit 40.9 Mean Corpuscular Volume 100.4 Mean Corpuscular Hemoglobin 35.0 Mean Corpuscular Hemoglobin 34.9 Concent Red Cell Distribution Width 14.4 Platelet Count 245 Mean Platelet Volume 8.9 Neutrophils (%) (Auto) 62.0 Lymphocytes (%) (Auto) 28.2 Monocytes (%) (Auto) 7.5 Eosinophils (%) (Auto) 1.6 Basophils (%) (Auto) 0.7 Neutrophils # (Auto) 6.0 Lymphocytes # (Auto) 2.7 Monocytes # (Auto) 0.7 Eosinophils # (Auto) 0.2 Basophils # (Auto) 0.1 CBC Comment DIFF FINAL Differential Comment Sodium Level 139 Potassium Level 3.6 Chloride Level 104 Carbon Dioxide Level 25.7 Anion Gap 9 Blood Urea Nitrogen 8 Creatinine 1.41 Estimat Glomerular Filtration 50 Rate Random Glucose 81 Calcium Level 8.4 Total Bilirubin 1.1 Aspartate Amino Transf 18 (AST/SGOT) Alanine Aminotransferase 14 (ALT/SGPT) Alkaline Phosphatase 208 Total Protein 6.8 Albumin 3.0 Prothrombin Time 10.4 Prothromb Time International 0.9 Ratio Activated Partial 29.2 Thromboplast Time Magnesium Level 1.7 Total Creatine Kinase 42 Troponin I 0.06 0.06 (June Allison) Result Diagram: 06/22/1614106/22/16141 Assessment and Plan Problem List: (1) Weakness (2) COPD (chronic obstructive pulmonary disease) (3) Dehydration (4) Bipolar disorder (5) Elevated troponin (6) History of left below knee amputation (7) Alcohol intoxication (8) Hypertension (9) Tobacco abuse (10) Weight loss Assessment and Plan Admit to Dr. Rahman 71-year-old male with history hypertension, hyperlipidemia. Presented to emergency room complaining of weakness and tingling of upper extremities, noted with tremors. Positive for alcohol use. In the emergency room patient was evaluated and noted with elevated troponin. Patient was given aspirin and started on heparin. Elevated troponin, rule out acute coronary syndrome -Continue with serial cardiac enzymes -Appreciate cardiology input -Patient will be going for stress test -Continue heparin drip for now, -Continue with aspirin -Lipid profile has been completed, results noted Alcohol abuse, possible withdrawal Start [facility] protocol -Alcohol abuse counseling Generalized weakness with dehydration, weight loss. Likely secondary to alcohol abuse. -Continue with IV fluids -Replace electrolytes as needed COPD -DuoNeb's 4 times a day when necessary for wheezing Bipolar disorder Continue home medications Medications reviewed, some initiated as indicated Continue with heparin for DVT prophylaxis Protonix for GI prophylaxis Case management consultation for rehabilitation placement Plan of care discussed with the patient, attending and registered nurse. Further management of the patient will be dependent on the hospital course This patient was seen by myself and Dr. Rahman, this H&P is written on his behalf (June Allison) Assessment and Plan seen, examined by myself, Dr Rahman, on 06/22/16 Admitted with atypical chest pain Stress test pending Possible need for placement Discussed with mid level provider The exam, history, and the medical decision-making described in the above note were completed with the assistance of the mid-level provider. I reviewed the findings presented. I attest that I had a [id number] encounter with the patient on the same day, and personally performed and documented my assessment and findings in the medical record. (Crystal Rahman MD) Physician Certification 2 Midnight Certification Type: Admission for Inpatient Services Order for Inpatient Services The services are ordered in accordance with Medicare regulations or non- Medicare payer requirements, as applicable. In the case of services not specified as inpatient-only, they are appropriately provided as inpatient services in accordance with the 2-midnight benchmark. Estimated LOS (days): 2 2 days is the estimated time the patient will need to remain in the hospital, assuming treatment plan goals are met and no additional complications. Post-Hospital Plan: SNF (June Allison) Problem Qualifiers (1) COPD (chronic obstructive pulmonary disease): Qualified Code: J44.9 - Chronic obstructive pulmonary disease, unspecified COPD type (2) Bipolar disorder: Qualified Code: F31.9 - Bipolar affective disorder, remission status unspecified (3) Alcohol intoxication: Qualified Code: F10.129 - Alcohol intoxication, with unspecified complication (4) Hypertension: Qualified Code: I10 - Essential hypertension June Allison Jun 22, 2016 08:55 Crystal Rahman MD Jun 23, 2016 17:48
[2016-06-22] MEDS: SODIUM CHLORIDE 0.9% FLUSH 5 ML FLUSH FLUSH SCH ×2 (09:00→20:48)
--- NOTE | 2016-06-22 09:07 | MB ---
cc: TWIN VIEIRA MD DATE OF CONSULTATION: 06/22/2016 REASON FOR CONSULTATION Chest pain and indeterminate troponin. HISTORY OF PRESENT ILLNESS Mr. Knapp is a 71-year-old man who has difficulties with alcoholism and bipolar disorder. The patient reports about a month ago he fell out of his wheelchair. Since that time he has been having intermittent episodes of chest pain. He reports that they are intermittent and typically last only seconds. He reports that there is a pulsatile nature to it as it goes with his pulse. The patient is currently pain free. He reports he came to the hospital for generalized weakness and bilateral arm numbness from the elbows down. PAST MEDICAL HISTORY 1. Bipolar disorder. 2. ETOH abuse. 3. Per the records he also has a history of COPD, GERD, rhabdomyolysis, left-sided weakness, left leg BKA, left lobe thoracotomy, IVC filter. SOCIAL HISTORY The patient drinks a bottle of wine a day and has a half-pack of cigarettes a day. ALLERGIES 1. TETANUS. 2. VANCOMYCIN. 3. SULFA. MEDICATIONS Outpatient medications are per the record. The patient essentially denies any to me. FAMILY HISTORY Noncontributory. PHYSICAL EXAMINATION VITAL SIGNS: 97.3, 90, 20, 142/65. GENERAL: In general he is a thin man in no apparent distress. NECK: His neck is free from JVD. LUNGS: The lungs are clear on auscultation. CARDIOVASCULAR: He has normal S1 and S2. I do not appreciate any murmurs, rubs or gallops. The chest wall is tender to palpation. ABDOMEN: The abdomen is soft. EXTREMITIES: The extremities are free from edema. Left BKA is noted. LABORATORY Lab values are significant for a creatinine of 1.41 and serial troponins of 0.06/0.06. His MCV is 100.4 with a hemoglobin of 40.9. IMPRESSIONS/RECOMMENDATIONS 1. Chest pain: The patient's chest pain is musculoskeletal and reproducible on exam. 2. Indeterminate troponin: The patient has a mild elevation that appears flatly elevated. This is occurring in the setting of elevated creatinine (and probable dehydration) as well as a history of alcoholism. I am concerned there may be an alcoholic cardiomyopathy and will request a nuclear stress test for further evaluation of this. If the study is not ischemic it is reasonable for him to be discharged. He is felt to be a poor/not revascularization candidate at this time secondary to his co-morbid conditions. 3. Arm numbness: This will be followed by the primary team. 4. The patient's creatinine is elevated from his baseline. He admits to poor p.o. food intake and poor p.o. fluid intake. IV hydration has been started. Further therapy will be per the primary team. Twin Vieira M.D. BRITTNI/KATHE /8:27 AM /8:53 AM
[2016-06-22] MEDS ORDERED: traZODone HCL 50 MG TAB PO PRN (09:30)
[2016-06-22] MEDS ORDERED: RESP: ALBUTEROL 2.5 MG/IPRATROPIUM 0.5 MG NEB (PRN) NEB (09:30)
[2016-06-22] MEDS ORDERED: LORazepam 2 MG/ML VIAL IV PUSH PRN ×3 (09:30)
[2016-06-22] MEDS ORDERED: LORazepam 1 MG TAB PO PRN (09:30)
[2016-06-22] MEDS ORDERED: SODIUM CHLORIDE 0.9% FLUSH 5 ML FLUSH IV FLUSH PRN (09:30)
[2016-06-22] MEDS ORDERED: LORazepam 2 MG TAB PO PRN (09:30)
[2016-06-22] MEDS ORDERED: FLUMAZENIL 0.5 MG/5 ML VIAL IV PUSH PRN (09:30)
[2016-06-22] MEDS: LORazepam 2 MG/ML VIAL IV PUSH PRN ×2 (10:01→20:47)
[2016-06-22 10:16] LABS: APTT (PATIENT) 89.3 SEC (24.3-30.1)
[2016-06-22] MEDS ORDERED: REGADENOSON INJ 0.4 MG/5 ML SYR ONE (10:42)
--- NOTE | 2016-06-22 12:35 | RADRPT ---
EXAM DATE/TIME: 06/22/2016 10:48 [facility] COMPARISON: No previous studies available for comparison. INDICATIONS : Left chest pain radiating to both arms. Angina. DOSE: 25.7 mCi Tc99m Myoview at stress. 8.1 mCi Tc99m Myoview at rest. 0.4 mg Lexiscan STRESS SYMPTOMS: None noted. EJECTION FRACTION: > 70% MEDICAL HISTORY : Hypertension. Chronic obstructive pulmonary disease. Asthma SURGICAL HISTORY : Left foot, Thoracotomy ENCOUNTER: Initial ACUITY: 1 week PAIN SCALE: 5/10 LOCATION: chest discomfort TECHNIQUE: The patient underwent pharmacologic stress with infusion of prescribed dose. Continuous ECG tracing was monitored during stress. Gated SPECT imaging was performed after stress and conventional SPECT i maging was performed at rest. The examination was performed on a SPECT/CT scanner, both attenuation and non-corrected datasets were reviewed. FINDINGS: DISTRIBUTION: The maximum perfused segment at stress is in the anterior wall. PERFUSION STUDY: The pattern of perfusion at stress is within normal limits. GATED STUDY: There is intact wall motion and thickening without hypokinetic or dyskinetic segments. CONCLUSION: No reversible perfusion defects. No focal wall motion abnormalities. Ejection fraction within normal limits. RISK CATEGORY: 1-Low Risk. Allen Wright MD on June 22, 2016 at 12:31 Board Certified Radiologist. This report was verified electronically.
[2016-06-22] MEDS: SUCRALFATE 1 GM TAB PO SCH ×2 (13:00→20:48)
--- NOTE | 2016-06-22 13:38 | EKG ---
Date Performed: 06/22/2016 Time Performed: 01:26:57 PTAGE: 71 years EKG: Sinus rhythm LEFT ANTERIOR FASCICULAR BLOCK MODERATE ST DEPRESSION ABNORMAL ECG PREVIOUS TRACING : 06/20/2016 16.07 Since previous tracing, no significant change noted DOCTOR: Renata Caldera Interpretating Date/Time 06/22/2016 13:34:53
--- NOTE | 2016-06-22 13:39 | EKG ---
Date Performed: 06/22/2016 Time Performed: 07:59:02 PTAGE: 71 years EKG: Sinus rhythm BORDERLINE LEFT AXIS DEVIATION MODERATE ST DEPRESSION ABNORMAL ECG PREVIOUS TRACING : 06/22/2016 01.26 Since previous tracing, no significant change noted DOCTOR: Renata Caldera Interpretating Date/Time 06/22/2016 13:35:04
[2016-06-22] MEDS ORDERED: ADENOSINE IV SOLN 3 MG/ML 2 ML VIAL IV PUSH ONE ×2 (14:15)
[2016-06-22] MEDS ORDERED: SODIUM CHLORIDE 0.9% FLUSH 5 ML FLUSH IV FLUSH SCH (21:00)
[2016-06-23] VITALS (12 sets, daily range): BP systolic 112–142; BP diastolic 58–76; PULSE 52–80; RESP 15–18; TEMP 97.2–98.1; O2SAT 96–100
[2016-06-23] MEDS: SODIUM CHLORIDE 0.9% FLUSH 5 ML FLUSH FLUSH SCH ×2 (09:36→20:57)
[2016-06-23] MEDS: SUCRALFATE 1 GM TAB PO SCH ×4 (09:36→20:57)
[2016-06-23] MEDS: FOLIC ACID 1 MG TAB PO SCH (09:36)
[2016-06-23] MEDS: THIAMINE HCL 100 MG TAB PO SCH (09:36)
[2016-06-23] MEDS: PANTOPRAZOLE SOD 40 MG DELAYED RELEASE TAB PO SCH (09:36)
[2016-06-23] MEDS: ASPIRIN 325 MG TAB PO SCH (09:36)
[2016-06-23] MEDS: CITALOPRAM HYDROBROMIDE 20 MG TAB PO SCH (09:36)
--- NOTE | 2016-06-23 11:57 | PD.CARD.PN ---
Subjective Subjective Remarks Pt without complaints Objective Medications Current Medications Medications (Trade) Dose Ordered Sig/Rebekah Route Start Time Stop Time Status Last Admin (Aspirin) 325 mg DAILY PO 06/23/16 09:00 06/23/16 09:36 (NS Flush) 2 ml UNSCH PRN FLUSH 06/22/16 05:00 (NS Flush) 2 ml BID FLUSH 06/22/16 09:00 06/23/16 09:36 (Tylenol) 650 mg Q4H PRN PO 06/22/16 05:00 (Zofran Inj) 4 mg Q6H PRN IVP 06/22/16 05:00 (Morphine Inj) 2 mg Q3H PRN IV 06/22/16 05:00 (Morphine Inj) 4 mg Q3H PRN IV 06/22/16 05:00 Naloxone HCl 0.4 mg 0.4 mg UNSCH PRN IV 06/22/16 05:00 (NS 1000 ml Inj) 1,000 ml @ 100 mls/hr Q10H IV 06/22/16 08:30 (CeleXA) 20 mg DAILY PO 06/23/16 09:00 06/23/16 09:36 (Folate) 1 mg DAILY PO 06/23/16 09:00 06/23/16 09:36 (Protonix) 40 mg DAILY PO 06/23/16 09:00 06/23/16 09:36 (Carafate) 1 gm QID PO 06/22/16 13:00 06/23/16 09:36 (Vitamin B1) 100 mg DAILY PO 06/23/16 09:00 06/23/16 09:36 (Desyrel) 100 mg HS PRN PO 06/22/16 09:30 (Romazicon Inj) 0.2 mg Q1M PRN IV PUSH 06/22/16 09:30 (Ativan) 1 mg Q4H PRN PO 06/22/16 09:30 (Ativan Inj) 1 mg Q4H PRN IV PUSH 06/22/16 09:30 06/22/16 16:14 (Ativan) 2 mg Q2H PRN PO 06/22/16 09:30 (Ativan Inj) 2 mg Q2H PRN IV PUSH 06/22/16 09:30 06/22/16 20:47 (Ativan Inj) 2 mg Q1H PRN IV PUSH 06/22/16 09:30 (Ativan Inj) 2 mg Q15M PRN IV PUSH 06/22/16 09:30 06/22/16 21:48 (Librium) 5 mg TID PO 06/22/16 09:45 06/23/16 09:36 Vital Signs / I&O Vital Signs Date Time Temp Pulse Resp B/P Pulse Ox O2 Delivery O2 Flow Rate FiO2 06/23/16 10:00 65 06/23/16 09:30 98.1 64 16 112/64 98 06/23/16 09:00 64 06/23/16 08:00 58 06/23/16 07:20 52 06/23/16 03:00 97.7 67 18 142/76 96 06/22/16 23:00 97.4 65 18 131/67 97 06/22/16 19:00 98.2 87 18 134/70 99 06/22/16 17:37 98.3 71 18 94/64 100 06/22/16 16:00 100 22 144/67 94 Room Air 06/22/16 13:30 98 20 140/67 95 Room Air I/O 06/22/16 06/22/16 06/22/16 06/23/16 06/23/16 06/23/16 07:00 15:00 23:00 07:00 15:00 23:00 Intake Total 480 ml Balance 480 ml Intake Oral 480 ml # Voids 1 # Bowel Movements 1 1 Physical Exam GENERAL: Well developed. No acute distress. HEENT: Jugular venous pressure is normal. CHEST: Lungs clear to auscultation bilaterally. Unlabored respiratory effort. CARDIAC: Regular rate and rhythm without S3, S4, or murmur. ABDOMEN: Soft, nontender, no hepatosplenomegaly. Bowel sounds present. EXTREMITIES: No clubbing, cyanosis, or edema. Imaging Last 72 hours Impressions Chest X-Ray 06/22/16 0155 Signed Impressions: Service Date/Time: Wednesday, June 22, 2016 01:52 - CONCLUSION: Stable chest x-ray. No acute cardiopulmonary abnormality is identified. Nate Esquivel MD Myocardial Perfusion Scan Nuc Med 06/22/16 0000 Signed Impressions: Service Date/Time: Wednesday, June 22, 2016 10:48 - CONCLUSION: No reversible perfusion defects. No focal wall motion abnormalities. Ejection fraction within normal limits. RISK CATEGORY: 1-Low Risk. Allen Wright MD Assessment and Plan Assessment and Plan 1. Chest pain: The patient's chest pain is musculoskeletal and reproducible on exam. 2. Indeterminate troponin: no overt etiology -normal nuc stress 3. Arm numbness: This will be followed by the primary team. 4. The patient's creatinine - per primary team 5. Dispo- ok for d/c from CV perspective or transfer- no tele Alexa Gonzalez MD Jun 23, 2016 11:57
[2016-06-23] MEDS: SODIUM CHLOR 0.9% 1000 ML INJ 1,000 ML IV SCH (13:47)
--- NOTE | 2016-06-23 17:07 | HHI.PR ---
Subjective Subjective Remarks No chest pain No shortness of breath No headache Nausea vomiting Appetite good Mild soreness to palpation of chest ([place]) Review of Systems Constitutional Constitutional: Weakness Constitutional Remarks 10 point ROS done. Generalized weakness otherwise systems unremarkable ([place]) Musculoskeletal MS Remarks Left BKA healed ([place]) Integumentary Skin: Scars Skin Remarks Left BKA ([place]) Vitals/Results Intake & Output 06/22/16 06/22/16 06/23/16 15:00 23:00 07:00 Intake Total 480 ml Balance 480 ml Intake Oral 480 ml # Voids 1 # Bowel Movements 1 1 Vital Signs Vital Signs Date Time Temp Pulse Resp B/P Pulse Ox O2 Delivery O2 Flow Rate FiO2 06/23/16 16:20 98.1 64 16 121/58 99 06/23/16 13:30 97.9 67 16 129/62 100 06/23/16 13:00 80 06/23/16 12:00 72 06/23/16 11:00 64 06/23/16 10:00 65 06/23/16 09:30 98.1 64 16 112/64 98 06/23/16 09:00 64 06/23/16 08:00 58 06/23/16 07:20 52 06/23/16 03:00 97.7 67 18 142/76 96 06/22/16 23:00 97.4 65 18 131/67 97 06/22/16 19:00 98.2 87 18 134/70 99 06/22/16 17:37 98.3 71 18 94/64 100 ([place]) CBC/BMP: 06/22/16 0142 06/22/16 0142 Imaging Remarks Last Impressions Chest X-Ray 06/22/16 0155 Signed Impressions: Service Date/Time: Wednesday, June 22, 2016 01:52 - CONCLUSION: Stable chest x-ray. No acute cardiopulmonary abnormality is identified. Nate Esquivel MD Myocardial Perfusion Scan Nuc Med 06/22/16 0000 Signed Impressions: Service Date/Time: Wednesday, June 22, 2016 10:48 - CONCLUSION: No reversible perfusion defects. No focal wall motion abnormalities. Ejection fraction within normal limits. RISK CATEGORY: 1-Low Risk. Allen Wright MD Current Medications Active Medications Aspirin (Aspirin) 325 mg DAILY PO Last administered on 06/23/16 09:36; Admin Dose 325 MG; Start 06/23/16 at 09:00 Citalopram Hydrobromide (CeleXA) 20 mg DAILY PO Last administered on 06/23/16 09 :36; Admin Dose 20 MG; Start 06/23/16 at 09:00 Folic Acid (Folate) 1 mg DAILY PO Last administered on 06/23/16 09:36; Admin Dose 1 MG; Start 06/23/16 at 09:00 IV Flush (NS Flush) 2 ml BID IV FLUSH; Start 06/22/16 at 21:00; Stop 06/22/16 at 21:00; Status DC Pantoprazole Sodium (Protonix) 40 mg DAILY PO Last administered on 06/23/16 09: 36; Admin Dose 40 MG; Start 06/23/16 at 09:00 Thiamine HCl (Vitamin B1) 100 mg DAILY PO Last administered on 06/23/16 09:36; Admin Dose 100 MG; Start 06/23/16 at 09:00 ([place] [facility] 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 [facility] GRADER OPERATOR) Ears & Nose Ears & Nose Exam: Nasal Mucosa [place] ([place] Park M. 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 [facility] GRADER OPERATOR) Pulmonary Resp Exam: Clear Bilaterally, No Distress ([place] M. [facility] GRADER OPERATOR) Cardiology CV Exam: Regular ([place] M. [facility] GRADER OPERATOR) Gastrointestinal/Abdomen GI Exam: Soft, Non-Tender, Bowel Sounds Present ([place] M. [facility] GRADER OPERATOR) Musculoskeletal MS Exam: Joints Intact ([place] M. [facility] GRADER OPERATOR) Integumentary Skin Exam: Clear, Warm, Dry ([place] Park M. RO[facility] GRADER OPERATOR) Extremeties Extremities Exam: No Edema Extremeties Remarks Old left BKA ([place] ParkSusanna DAWKINS) Neurologic Neuro Exam: Alert, Awake, Oriented, Speech Clear, Moving All Extremities Neuro Remarks Response to yes or no questions ([place] ParkSusanna BHAGATP) VTE Prophylaxis VTE Prophylaxis Device: SCDs ([place] BHAGATP) Assessment/Plan Assessment/Plan (1) Weakness (2) COPD (chronic obstructive pulmonary disease) (3) Dehydration (4) Bipolar disorder (5) Elevated troponin (6) History of left below knee amputation (7) Alcohol intoxication (8) Hypertension (9) Tobacco abuse (10) Weight loss Elevated troponin, ruled out acute coronary syndrome, Stress test normal, chest pain appears to be muscular/skeletal -Continue with serial cardiac enzymes, ruled out -Appreciate cardiology input with treatment plan -Lipid profile has been completed, results noted Alcohol abuse, possible withdrawal Start CIWA protocol no DTs noted Generalized weakness with dehydration probable. Slow improvement today Regular diet ordered, Patient is hungry COPD -DuoNeb's 4 times a day when necessary for wheezing, prn Bipolar disorder Continue home medications Continue with ASA for DVT prophylaxis Protonix for GI prophylaxis Case management consultation for rehabilitation placement on 06/22 Plan of care discussed with the patient. Explained to him cardiac exam negative. Pending discharge probable in a.m. This patient was seen by myself and Dr. Rahman, this H&P is written on his behalf Discussed Condition with: Patient ([place] Park RO[facility] GRADER OPERATOR) Assessment/Plan seen, examined by myself, Dr Rahman, today 06/23/16 patient denies complaints at rest Discussed with nurse Stress test was negative Nurse is concerned about his safety for discharge consulting services associate consulted Possible placement Physical therapy consult Discussed with mid level provider The exam, history, and the medical decision-making described in the above note were completed with the assistance of the mid-level provider. I reviewed the findings presented. I attest that I had a [id number] encounter with the patient on the same day, and personally performed and documented my assessment and findings in the medical record. (Crystal Rahman MD) BraceySimran salgueroSusanna DAWKINS Jun 23, 2016 17:07 Crystal Rahman MD Jun 23, 2016 18:04 and findings in the medical record. (Crystal Rahman MD) [place] Jun 23, 2016 17:07 Crystal Rahman MD Jun 23, 2016 18:04
[2016-06-24] VITALS: BP 113/59; PULSE 73; RESP 15; TEMP 96.3; O2SAT 96
[2016-06-24 04:00] VITALS: BP 126/62; PULSE 62; RESP 15; TEMP 96.3; O2SAT 96
[2016-06-24 08:00] VITALS: BP 135/66; PULSE 88; RESP 18; TEMP 97.9; O2SAT 100
[2016-06-24] MEDS: ASPIRIN 325 MG TAB PO SCH (09:26)
[2016-06-24] MEDS: THIAMINE HCL 100 MG TAB PO SCH (09:26)
[2016-06-24] MEDS: PANTOPRAZOLE SOD 40 MG DELAYED RELEASE TAB PO SCH (09:26)
[2016-06-24] MEDS: FOLIC ACID 1 MG TAB PO SCH (09:26)
[2016-06-24] MEDS: CITALOPRAM HYDROBROMIDE 20 MG TAB PO SCH (09:26)
[2016-06-24] MEDS: SUCRALFATE 1 GM TAB PO SCH ×4 (09:26→20:22)
[2016-06-24 12:00] VITALS: BP 116/65; PULSE 70; RESP 18; TEMP 97.6; O2SAT 98
[2016-06-24] MEDS: SODIUM CHLORIDE 0.9% FLUSH 5 ML FLUSH FLUSH SCH ×2 (12:12→20:22)
--- NOTE | 2016-06-24 13:15 | EKG ---
Date Performed: 06/22/2016 Time Performed: 14:05:37 PTAGE: 71 years EKG: SUPRAVENTRICULAR TACHYCARDIA LOW QRS VOLTAGE IN EXTREMITY LEADS MARKED ST DEPRESSION, CONSI KIM SUBENDOCARDIAL INJURY When compared to previous tracing, there is now evidence of a Supraventric ular tachicardia with anterolateral ischemic changes. ABNORMAL ECG PREVIOUS TRACING : 06/22/2016 07.59 DOCTOR: Felicia Mcfarland Interpretating Date/Time 06/24/2016 13:14:02
--- NOTE | 2016-06-24 13:18 | EKG ---
Date Performed: 06/22/2016 Time Performed: 14:10:36 PTAGE: 71 years EKG: SINUS TACHYCARDIA LOW QRS VOLTAGE IN EXTREMITY LEADS NONSPECIFIC ST & T-WAVE ABNORMALITY Wh en compared to previous tracing, it appears the Supraventricular tachicardia is no longer present, so me ischemic Changes however continue. Clinical correlation is recommended. ABNORMAL RHYTHM ECG PREVIOUS TRACING : 06/22/2016 14.05.37 DOCTOR: Felicia Mcfarland Interpretating Date/Time 06/24/2016 13:17:11
--- NOTE | 2016-06-24 17:45 | HHI.PR ---
Subjective Subjective Remarks No chest pain No shortness of breath Nausea vomiting Appetite fair, decreased today Review of Systems Constitutional Constitutional: Weakness Constitutional Remarks 10 point ROS done. Generalized weakness, arthritis, otherwise systems unremarkable Musculoskeletal MS Remarks Left BKA healed Integumentary Skin: Scars Skin Remarks Left BKA Vitals/Results Intake & Output 06/23/16 06/23/16 06/24/16 15:00 23:00 07:00 Intake Total 120 ml Balance 120 ml Intake Oral 120 ml # Voids 1 Vital Signs Vital Signs Date Time Temp Pulse Resp B/P Pulse Ox O2 Delivery O2 Flow Rate FiO2 06/24/16 12:00 97.6 70 18 116/65 98 06/24/16 08:00 97.9 88 18 135/66 100 06/24/16 04:00 96.3 62 15 126/62 96 06/24/16 00:00 96.3 73 15 113/59 96 06/23/16 20:00 97.2 72 15 125/61 98 CBC/BMP: 06/22/16 0142 06/22/16 0142 Imaging Remarks Last Impressions Chest X-Ray 06/22/16 0155 Signed Impressions: Service Date/Time: Wednesday, June 22, 2016 01:52 - CONCLUSION: Stable chest x-ray. No acute cardiopulmonary abnormality is identified. Nate Esquivel MD Myocardial Perfusion Scan Nuc Med 06/22/16 0000 Signed Impressions: Service Date/Time: Wednesday, June 22, 2016 10:48 - CONCLUSION: No reversible perfusion defects. No focal wall motion abnormalities. Ejection fraction within normal limits. RISK CATEGORY: 1-Low Risk. Allen Wright MD Physical Exam General General Appearance: Well Developed, Well Nourished, Pale Eyes Eye Exam: Pupils Equal, Pupils Reactive Ears & Nose Ears & Nose Exam: Nasal Mucosa [place] Throat Throat Exam: Oral Mucosa [place] & Moist Neck Neck Exam: Neck Supple, Trachea Midline Pulmonary Resp Exam: Clear Bilaterally, No Distress Cardiology CV Exam: Regular Gastrointestinal/Abdomen GI Exam: Soft, Non-Tender, Bowel Sounds Present Musculoskeletal MS Exam: Joints Intact, Normal Tone MS Remarks Arthritis joints, extremities Integumentary Skin Exam: Clear, Warm, Dry Extremeties Extremities Exam: No Edema Extremeties Remarks Old left BKA Neurologic Neuro Exam: Alert, Awake, Oriented, Speech Clear, Moving All Extremities Neuro Remarks Response to yes or no questions VTE Prophylaxis VTE Prophylaxis Device: SCDs Assessment/Plan Assessment/Plan (1) Weakness (2) COPD (chronic obstructive pulmonary disease) (3) Dehydration (4) Bipolar disorder (5) Elevated troponin (6) History of left below knee amputation (7) Alcohol intoxication (8) Hypertension (9) Tobacco abuse (10) Weight loss Elevated troponin, ruled out acute coronary syndrome, Stress test normal, chest pain appears to be muscular/skeletal -Appreciate cardiology , signed off Alcohol abuse, possible withdrawal Start CIWA protocol no DTs noted Generalized weakness with dehydration probable. Slow improvement today Appetite waxes and wanes COPD -DuoNeb's 4 times a day when necessary for wheezing, prn Bipolar disorder Continue home medications Arthritis, pain management Continue with ASA for DVT prophylaxis Protonix for GI prophylaxis Case management consultation for rehabilitation placement on 06/22 Plan of care discussed with the patient. Explained to him cardiac exam negative. Pending discharge probable in a.m. This patient was seen by myself and Dr. Rahman, this H&P is written on his behalf [place] Jun 24, 2016 17:45
[2016-06-24 18:26] VITALS: BP 138/60; PULSE 80; RESP 18; TEMP 98.1; O2SAT 97
[2016-06-24] MEDS: SODIUM CHLOR 0.9% 1000 ML INJ 1,000 ML IV SCH (20:30)
[2016-06-24 21:04] VITALS: BP 118/64; PULSE 62; RESP 16; TEMP 97.2; O2SAT 96
[2016-06-25] VITALS (7 sets, daily range): BP systolic 106–145; BP diastolic 62–71; PULSE 60–68; RESP 16–18; TEMP 96.9–97.8; O2SAT 96–100
[2016-06-25 09:21] LABS: AUTOMATED NEUTROPHIL # 6.1 TH/MM3 (1.8-7.7); BASOPHIL % 0.4 % (0.0-2.0); EOSINOPHIL # 0.4 TH/MM3 (0-0.4); EOSINOPHIL % 4.5 % (0.0-4.0); HEMATOCRIT 36.8 % (39.0-51.0); HEMO FLAGS DIFF FINAL; LYMPH % 22.5 % (9.0-44.0); LYMPHOCYTE # 2.1 TH/MM3 (1.0-4.8); MEAN CELL VOLUME 103.4 FL (80.0-100.0); MEAN CORPUSCULAR HEMOGLOBIN 35.3 PG (27.0-34.0); MEAN CORPUSCULAR HGB CONC 34.1 % (32.0-36.0); NEUT % 64.6 % (16.0-70.0); PLATELET COUNT 169 TH/MM3 (150-450); RED BLOOD COUNT 3.55 MIL/MM3 (4.50-5.90); RED CELL DISTRIBUTION WIDTH 14.4 % (11.6-17.2); WHITE BLOOD COUNT 9.5 TH/MM3 (4.0-11.0)
[2016-06-25] MEDS: ASPIRIN 325 MG TAB PO SCH (09:26)
[2016-06-25] MEDS: PANTOPRAZOLE SOD 40 MG DELAYED RELEASE TAB PO SCH (09:28)
[2016-06-25] MEDS: THIAMINE HCL 100 MG TAB PO SCH (09:28)
[2016-06-25] MEDS: SODIUM CHLORIDE 0.9% FLUSH 5 ML FLUSH FLUSH SCH ×2 (09:29→20:04)
[2016-06-25] MEDS: CITALOPRAM HYDROBROMIDE 20 MG TAB PO SCH (09:29)
[2016-06-25] MEDS: FOLIC ACID 1 MG TAB PO SCH (09:29)
[2016-06-25] MEDS: SUCRALFATE 1 GM TAB PO SCH ×4 (09:29→20:04)
[2016-06-25 10:03] LABS: BICARBONATE 28.6 MEQ/L (21.0-32.0); POTASSIUM 3.7 MEQ/L (3.5-5.1)
--- NOTE | 2016-06-25 10:31 | HHI.PR ---
Subjective Interval History She is feeling better No headache or dizziness Non-nausea vomiting No abdominal pain Appetite okay Review of systems a 12 point system otherwise unremarkable Review of Systems Constitutional Constitutional: Weakness Integumentary Skin: Scars Vitals/Results Intake & Output 06/24/16 06/24/16 06/25/16 15:00 23:00 07:00 Intake Total 540 ml 150 ml Output Total 250 ml 350 ml Balance 290 ml -200 ml Intake Oral 540 ml 150 ml Output Urine Total 250 ml 350 ml # Voids 1 1 # Bowel Movements 1 0 Vital Signs Vital Signs Date Time Temp Pulse Resp B/P Pulse Ox O2 Delivery O2 Flow Rate FiO2 06/25/16 08:00 97.4 64 18 139/65 96 06/25/16 04:00 97.8 62 16 144/66 99 06/25/16 00:03 96.9 68 16 145/68 100 06/24/16 21:04 97.2 62 16 118/64 96 06/24/16 18:26 98.1 80 18 138/60 97 06/24/16 12:00 97.6 70 18 116/65 98 CBC/BMP: 06/25/16 0819 06/22/16 0142 Lab Results Laboratory Tests Test 06/25/16 08:19 White Blood Count 9.5 TH/MM3 Red Blood Count 3.55 MIL/MM3 Hemoglobin 12.6 GM/DL Hematocrit 36.8 % Mean Corpuscular Volume 103.4 FL Mean Corpuscular Hemoglobin 35.3 PG Mean Corpuscular Hemoglobin 34.1 % Concent Red Cell Distribution Width 14.4 % Platelet Count 169 TH/MM3 Mean Platelet Volume 9.2 FL Neutrophils (%) (Auto) 64.6 % Lymphocytes (%) (Auto) 22.5 % Monocytes (%) (Auto) 8.0 % Eosinophils (%) (Auto) 4.5 % Basophils (%) (Auto) 0.4 % Neutrophils # (Auto) 6.1 TH/MM3 Lymphocytes # (Auto) 2.1 TH/MM3 Monocytes # (Auto) 0.8 TH/MM3 Eosinophils # (Auto) 0.4 TH/MM3 Basophils # (Auto) 0.0 TH/MM3 CBC Comment DIFF FINAL Differential Comment Physical Exam General General Appearance: Well Developed, Well Nourished, Pale Eyes Eye Exam: Pupils Equal, Pupils Reactive Ears & Nose Ears & Nose Exam: Nasal Mucosa [place] Throat Throat Exam: Oral Mucosa [place] & Moist Neck Neck Exam: Neck Supple, Trachea Midline Pulmonary Resp Exam: Clear Bilaterally, No Distress Cardiology CV Exam: Regular Gastrointestinal/Abdomen GI Exam: Soft, Non-Tender, Bowel Sounds Present Musculoskeletal MS Exam: Joints Intact, Normal Tone Integumentary Skin Exam: Clear, Warm, Dry Extremeties Extremities Exam: No Edema Neurologic Neuro Exam: Alert, Awake, Oriented, Speech Clear, Moving All Extremities VTE Prophylaxis VTE Prophylaxis Device: SCDs Assessment/Plan Assessment/Plan (1) Weakness (2) COPD (chronic obstructive pulmonary disease) (3) Dehydration (4) Bipolar disorder (5) Elevated troponin (6) History of left below knee amputation (7) Alcohol intoxication (8) Hypertension (9) Tobacco abuse (10) Weight loss Elevated troponin, ruled out acute coronary syndrome, Stress test normal, chest pain resolved, appeared to be muscular/skeletal -Appreciate cardiology , signed off Alcohol abuse, possible withdrawal Start CIWA protocol no DTs noted. Patient consult about cessation of alcohol. He understood Generalized weakness with dehydration probable. Slow improvement today Appetite waxes and wanes COPD -DuoNeb's 4 times a day when necessary for wheezing, prn. Is stable Bipolar disorder Continue home medications. Stable Arthritis, pain management. Stable Continue with ASA for DVT prophylaxis Protonix for GI prophylaxis Discussed with Case management about DC planning to SNF once bed is available Plan of care discussed with the patient.. Previous notes labs radiological data reviewed medications reviewed Pérez Nogueira MD Jun 25, 2016 09:51
[2016-06-25] MEDS: SODIUM CHLOR 0.9% 1000 ML INJ 1,000 ML IV SCH (16:30)
[2016-06-26] VITALS: BP 128/60; PULSE 56; RESP 18; TEMP 97.4; O2SAT 98
[2016-06-26] MEDS: SODIUM CHLOR 0.9% 1000 ML INJ 1,000 ML IV SCH (02:30)
[2016-06-26 04:00] VITALS: BP 128/58; PULSE 57; RESP 16; TEMP 97.5; O2SAT 97
[2016-06-26 05:54] LABS: HEMATOCRIT 32.1 % (39.0-51.0); MEAN CELL VOLUME 102.4 FL (80.0-100.0); MEAN CORPUSCULAR HEMOGLOBIN 36.4 PG (27.0-34.0); MEAN CORPUSCULAR HGB CONC 35.5 % (32.0-36.0); PLATELET COUNT 161 TH/MM3 (150-450); RED BLOOD COUNT 3.14 MIL/MM3 (4.50-5.90); RED CELL DISTRIBUTION WIDTH 14.4 % (11.6-17.2); REVIEW FLAG FINAL; WHITE BLOOD COUNT 8.3 TH/MM3 (4.0-11.0)
[2016-06-26 08:00] VITALS: BP 120/62; PULSE 75; RESP 18; TEMP 97.1; O2SAT 98
--- NOTE | 2016-06-26 09:43 | HHI.PR ---
Subjective Interval History pt is feeling better wants to go to snf offering no complaint ROs for 12 point system is unremarkable Review of Systems Constitutional Constitutional: Weakness Integumentary Skin: Scars Vitals/Results Intake & Output 06/25/16 06/25/16 06/26/16 15:00 23:00 07:00 Intake Total 480 ml Balance 480 ml Intake Oral 480 ml # Voids 2 1 1 # Bowel Movements 1 1 Vital Signs Vital Signs Date Time Temp Pulse Resp B/P Pulse Ox O2 Delivery O2 Flow Rate FiO2 06/26/16 04:00 97.5 57 16 128/58 97 06/26/16 00:00 97.4 56 18 128/60 98 06/25/16 20:00 97.4 60 16 137/63 98 06/25/16 16:00 97.8 64 18 136/71 98 06/25/16 12:00 97.3 61 16 141/65 100 CBC/BMP: 06/26/16 0500 06/25/16 0819 Lab Results Laboratory Tests Test 06/25/16 06/26/16 13:30 05:00 Nasal Screen MRSA (PCR) POSITIVE White Blood Count 8.3 TH/MM3 Red Blood Count 3.14 MIL/MM3 Hemoglobin 11.4 GM/DL Hematocrit 32.1 % Mean Corpuscular Volume 102.4 FL Mean Corpuscular Hemoglobin 36.4 PG Mean Corpuscular Hemoglobin 35.5 % Concent Red Cell Distribution Width 14.4 % Platelet Count 161 TH/MM3 Mean Platelet Volume 9.3 FL Physical Exam General General Appearance: Well Developed, Well Nourished, Pale Eyes Eye Exam: Pupils Equal, Pupils Reactive Ears & Nose Ears & Nose Exam: Nasal Mucosa [place] Throat Throat Exam: Oral Mucosa [place] & Moist Neck Neck Exam: Neck Supple, Trachea Midline Pulmonary Resp Exam: Clear Bilaterally, No Distress Cardiology CV Exam: Regular Gastrointestinal/Abdomen GI Exam: Soft, Non-Tender, Bowel Sounds Present Musculoskeletal MS Exam: Joints Intact, Normal Tone Integumentary Skin Exam: Clear, Warm, Dry Extremeties Extremities Exam: No Edema Neurologic Neuro Exam: Alert, Awake, Oriented, Speech Clear, Moving All Extremities VTE Prophylaxis VTE Prophylaxis Device: SCDs Assessment/Plan Assessment/Plan (1) Weakness (2) COPD (chronic obstructive pulmonary disease) (3) Dehydration (4) Bipolar disorder (5) Elevated troponin (6) History of left below knee amputation (7) Alcohol intoxication (8) Hypertension (9) Tobacco abuse (10) Weight loss Elevated troponin, ruled out acute coronary syndrome, Stress test normal, chest pain resolved, appeared to be muscular/skeletal -Appreciate cardiology , signed off Alcohol abuse, possible withdrawal Start CIWA protocol no DTs noted. Patient consult about cessation of alcohol. He understood Generalized weakness with dehydration probable. better today Appetite better COPD -DuoNeb's 4 times a day when necessary for wheezing, prn. Is stable Bipolar disorder Continue home medications. Stable Arthritis, pain management. Stable Continue with ASA for DVT prophylaxis Protonix for GI prophylaxis Discussed with Case management about DC planning to SNF today Plan of care discussed with the patient.. carlos rn Previous notes labs reviewed medications reviewed Pérez Nogueira MD Jun 26, 2016 09:43
[2016-06-26] MEDS ORDERED: ASPI325T PO (09:48)
[2016-06-26] MEDS ORDERED: HYDR-3516 PO (09:48)
[2016-06-26] MEDS ORDERED: CHLO5CAP3 PO (09:48)
--- NOTE | 2016-06-26 09:54 | HHI.DS ---
Discharge Summary Admission Date Jun 22, 2016 at 04:12 Admitting Diagnosis non-STEMI (1) Weakness Diagnosis: Principal (2) COPD (chronic obstructive pulmonary disease) Diagnosis: Principal (3) Dehydration Diagnosis: Principal (4) Bipolar disorder Diagnosis: Principal (5) Elevated troponin Diagnosis: Principal (6) History of left below knee amputation Diagnosis: Principal (7) Alcohol intoxication Diagnosis: Principal (8) Hypertension Diagnosis: Principal (9) Tobacco abuse Diagnosis: Principal (10) Weight loss Diagnosis: Principal Brief History This is a 71-year-old male with past medical history hypertension, hyperlipidemia, COPD, PVD, 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 Patient presented to the emergency room with complaint of generalized weakness, shortness of breath, and chest pain for one week. Patient indicates he lives in an apartment and has been very weak and not able to take care of himself. He denied any actual chest pain to me, indicates that he feels very weak and he has tingling from his hands that go up to his shoulders, chest only hurts if you press on it but no actual discomfort. He does have COPD, has chronic cough with some sputum that is green on admission. Denied any fever or chills. He drinks 1 bottle of wine daily, last drink was 3 days ago prior to admission. He he was tremulous. In the emergency room, patient was evaluated. Patient was admitted because of above condition and oncology intoxication with dehydration and elevated troponin level. Patient was seen and followed by fire controlman. Stress test was done. CA was ruled out. Patient continued to be rehydrated. And watch for DTs. Patient was improving slowly. Now overall stable and better condition. His COPD was also monitored. He had some renal insufficiency which is improved. He has slight anemia of hydration. Stable H&H. And has been counseled about cessation of EtOH. Patient understood very well. He will follow those instructions. This patient is overall stable and better condition plan to discharge him to SNF. CBC/BMP: 06/26/16 0500 06/25/16 0819 Significant Findings Laboratory Tests Test 06/25/16 06/26/16 08:19 05:00 Red Blood Count 3.55 MIL/MM3 3.14 MIL/MM3 (4.50-5.90) (4.50-5.90) Hemoglobin 12.6 GM/DL 11.4 GM/DL (13.0-17.0) (13.0-17.0) Hematocrit 36.8 % 32.1 % (39.0-51.0) (39.0-51.0) Mean Corpuscular Volume 103.4 FL 102.4 FL (80.0-100.0) (80.0-100.0) Mean Corpuscular Hemoglobin 35.3 PG 36.4 PG (27.0-34.0) (27.0-34.0) Eosinophils (%) (Auto) 4.5 % (0.0-4.0) Estimat Glomerular Filtration 57 ML/MIN (>89) Rate Calcium Level 8.1 MG/DL (8.5-10.1) Phosphorus Level 2.0 MG/DL (2.5-4.9) Pt Condition on Discharge: Good Discharge Disposition: Discharge to SNF Discharge Instructions DIET: Follow Instructions for: Heart Healthy Diet Activities you can perform: Weight Bearing as Rubin Follow up Referrals: PCP Follow-up - 3-5 Days New Medications: Chlordiazepoxide (Chlordiazepoxide) 5 Mg Cap 5 MG PO TID PRN anxiety #15 Ref 0 CAP Aspirin (Aspirin) 325 Mg Tab 81 MG PO DAILY clot prevention #30 TAB Continued Medications: Chlordiazepoxide (Chlordiazepoxide) 25 Mg Cap 25 MG PO TID PRN Anxiety #21 Ref 0 CAP Citalopram (Celexa) 20 Mg Tab 20 MG PO DAILY health #30 Ref 0 TAB Digoxin (Digoxin) 0.125 Mg Tab 0.125 MG PO DAILY health #30 Ref 0 TAB Folic Acid (Folate) 1 Mg Tab 1 MG PO DAILY health #30 Ref 0 TAB Hydrocodone-Acetaminophen (Hydrocodone-Acetaminophen) 5-325 mg Tab 1 TAB PO Q6H PRN PAIN SCALE 1 TO 10 #21 TAB (This prescription has been renewed) Pantoprazole (Pantoprazole) 40 Mg Tab 40 MG PO DAILY health #30 Ref 0 TAB Potassium Chloride ER (K-Tab) 20 Meq Tab 20 MEQ PO BID Electrolyte Replacement #14 Ref 0 TAB Sucralfate (Carafate) 1 Gm Tab 1 GM PO QID health #120 Ref 0 TAB Thiamine (Vitamin B-1) 100 Mg Tab 100 MG PO DAILY health #30 Ref 0 TAB Trazodone (Trazodone) 50 Mg Tab 100 MG PO HS PRN INSOMNIA #30 TAB Discontinued Medications: Tramadol (Ultram) 50 Mg Tab 50 MG PO Q6H PRN PAIN #30 Ref 0 TAB Pérez Nogueira MD Jun 26, 2016 09:54
[2016-06-26] MEDS: PANTOPRAZOLE SOD 40 MG DELAYED RELEASE TAB PO SCH (10:08)
[2016-06-26] MEDS: CITALOPRAM HYDROBROMIDE 20 MG TAB PO SCH (10:08)
[2016-06-26] MEDS: FOLIC ACID 1 MG TAB PO SCH (10:08)
[2016-06-26] MEDS: THIAMINE HCL 100 MG TAB PO SCH (10:08)
[2016-06-26] MEDS: ASPIRIN 325 MG TAB PO SCH (10:08)
[2016-06-26] MEDS: SODIUM CHLORIDE 0.9% FLUSH 5 ML FLUSH FLUSH SCH (10:09)
== END 2016-06-26 12:08 | DRG 641 ==
LOC: NEPE 16:30 → NEDA 06-22 04:12 → NEDH 06-22 07:34 → HCIS 06-22 17:23 → HOCA 06-23 18:04
PROVIDERS: ADMIT Specialist; ATTEND Specialist
DX: E86.0 Dehydration (principal); J44.9 Chronic obstructive pulmonary disease, unspecified; R53.1 Weakness; I10 Essential (primary) hypertension; F10.229 Alcohol dependence with intoxication, unspecified; Z89.512 Acquired absence of left leg below knee; E78.5 Hyperlipidemia, unspecified; J45.909 Unspecified asthma, uncomplicated; K21.9 Gastro-esophageal reflux disease without esophagitis; M19.90 Unspecified osteoarthritis, unspecified site; I73.9 Peripheral vascular disease, unspecified; N28.9 Disorder of kidney and ureter, unspecified; F31.9 Bipolar disorder, unspecified; F17.210 Nicotine dependence, cigarettes, uncomplicated; Z59.0 Homelessness; Z85.118 Personal history of other malignant neoplasm of bronchus and lung; Z86.73 Personal history of transient ischemic attack (TIA), and cerebral infarction without residual deficits; E87.6 Hypokalemia; R94.31 Abnormal electrocardiogram [ECG] [EKG]; Y90.6 Blood alcohol level of 120-199 mg/100 ml
CPT/HCPCS: 71010; 78452; 80048; 80053; 80061; 80162; 80320; 81001; 82550; 82948; 83735; 84100; 84484; 85025; 85027; 85610; 85730; 87641; 93005; 93017; 94664; 96374; 96376; A9502; J1644; J2060; J2785; J7050